=== PATIENT | female | born 1975 | race Caucasian/White ===

== ENCOUNTER → 2018-03-20 10:03 | Outpatient (POV) | payer BC, SELFPAY | PROVIDERS: Visit Provider Dermatology | DX: Z00.00 Encounter for general adult medical examination without abnormal findings (principal) ==

== ENCOUNTER → 2019-06-30 18:20 | Outpatient (CLI) | payer BC, SELFPAY ==
[2019-06-30 19:05] LABS: Basophils % 0.4 % (0.1-2.0); Eosinophils # 0.3 K/mm3 (0.0-0.4); Eosinophils % 2.5 % (0.1-12.0); Hematocrit 41.4 % (37.0-47.0); Hemoglobin 13.6 g/dL (12.2-16.2); Lymphocytes # 3.5 K/mm3 (0.7-4.5); Mean Corpuscular HGB Conc 32.9 g/dL (31.8-35.4); Mean Corpuscular Hemoglobin 30.3 pg (27.0-31.2); Mean Corpuscular Volume 92.2 fl (81-99); Mean Platelet Volume 7.3 fl (7.4-10.4); Monocytes # 0.7 K/mm3 (0.1-1.0); Monocytes % 6.1 % (1.7-9.3); Neutrophils % 61.1 % (37.0-80.0); Platelet Count 333 K/mm3 (142-424); Red Blood Count 4.49 M/mm3 (4.20-5.40); Red Cell Distribution Width 12.8 % (11.5-17.5); White Blood Count 11.5 K/mm3 (4.8-10.8)
[2019-06-30 20:37] LABS: Alanine Aminotransferase 21 U/L (12-78); Albumin Level 3.6 gm/dL (3.4-5.0); Alkaline Phosphatase 100 U/L (46-116); Anion Gap 15.2 mEq/L (5-15); Aspartate Amino Transferase 15 U/L (15-37); Bilirubin,Total 0.4 mg/dL (0.2-1.0); Blood Urea Nitrogen 15 mg/dL (7-18); Carbon Dioxide 26 mmol/L (21.0-32.0); Chloride 100 mmol/L (98-107); Creatinine,Serum 0.76 mg/dL (0.55-1.02); Estimated Glomerular Filt Rate 83 ml/min (>60); GFR (African American) 101 ML/MIN (>60); Globulin 3.6 gm/dl (1.3-3.2); Glucose 120 mg/dL (74-106); Iron 41 ug/dl (28-170); Potassium 4.2 mmoL/L (3.5-5.1); Sodium 137 mmol/L (136-145); Thyroid Stimulating Hormone 1.86 uIU/ml (0.358-3.740); Total Protein,Serum 7.2 gm/dL (6.4-8.2)
== END ==
PROVIDERS: Visit Provider Nurse Practitioner Family
DX: D50.9 Iron deficiency anemia, unspecified (principal); F41.1 Generalized anxiety disorder; E03.9 Hypothyroidism, unspecified
CPT/HCPCS: 36415; 80053; 83540; 84443; 85025

== ENCOUNTER → 2019-08-13 17:06 | Outpatient (CLI) | payer BC, SELFPAY ==
[2019-08-13 17:21] LABS: Basophils % 0.3 % (0.1-2.0); Eosinophils # 0.3 K/mm3 (0.0-0.4); Eosinophils % 2.5 % (0.1-12.0); Hematocrit 42.4 % (37.0-47.0); Hemoglobin 13.6 g/dL (12.2-16.2); Lymphocytes # 3.1 K/mm3 (0.7-4.5); Lymphocytes % 28.6 % (10-50); Mean Corpuscular Hemoglobin 31.1 pg (27.0-31.2); Mean Corpuscular Volume 97.1 fl (81-99); Mean Platelet Volume 7.5 fl (7.4-10.4); Monocytes # 0.8 K/mm3 (0.1-1.0); Monocytes % 7.2 % (1.7-9.3); Neutrophils # 6.7 K/mm3 (1.8-7.8); Neutrophils % 61.5 % (37.0-80.0); Platelet Count 317 K/mm3 (142-424); Red Blood Count 4.37 M/mm3 (4.20-5.40); White Blood Count 10.8 K/mm3 (4.8-10.8)
[2019-08-18 09:22] LABS: QuantiFERON-TB Gold Plus Negative (Negative)
== END ==
PROVIDERS: Visit Provider Dermatology
DX: L40.0 Psoriasis vulgaris (principal)
CPT/HCPCS: 36415; 85025; 86480

== ENCOUNTER → 2019-10-26 16:04 | Outpatient (CLI) | payer BC, SELFPAY ==
[2019-10-26 16:40] LABS: Basophils % 0.3 % (0.1-2.0); Eosinophils # 0.2 K/mm3 (0.0-0.4); Eosinophils % 1.8 % (0.1-12.0); Hematocrit 41.6 % (37.0-47.0); Hemoglobin 13.4 g/dL (12.2-16.2); Lymphocytes # 2.9 K/mm3 (0.7-4.5); Lymphocytes % 30.1 % (10-50); Mean Corpuscular HGB Conc 32.3 g/dL (31.8-35.4); Mean Corpuscular Hemoglobin 30.5 pg (27.0-31.2); Mean Corpuscular Volume 94.3 fl (81-99); Mean Platelet Volume 7.5 fl (7.4-10.4); Monocytes # 0.6 K/mm3 (0.1-1.0); Neutrophils % 61.8 % (37.0-80.0); Platelet Count 312 K/mm3 (142-424); Red Blood Count 4.41 M/mm3 (4.20-5.40); White Blood Count 9.7 K/mm3 (4.8-10.8)
[2019-10-26 17:34] LABS: Alanine Aminotransferase 19 U/L (12-78); Albumin Level 3.5 gm/dL (3.4-5.0); Alkaline Phosphatase 114 U/L (46-116); Anion Gap 12.2 mEq/L (5-15); Aspartate Amino Transferase 9 U/L (15-37); Bilirubin,Total 0.3 mg/dL (0.2-1.0); Blood Urea Nitrogen 20 mg/dL (7-18); Calcium 9.5 mg/dL (8.5-10.1); Carbon Dioxide 28 mmol/L (21.0-32.0); Chloride 101 mmol/L (98-107); Creatinine,Serum 0.62 mg/dL (0.55-1.02); Estimated Glomerular Filt Rate 105 ml/min (>60); Ferritin 139 ng/mL (8-388); GFR (African American) 127 ML/MIN (>60); Globulin 3.4 gm/dl (1.3-3.2); Glucose 87 mg/dL (74-106); Potassium 4.2 mmoL/L (3.5-5.1); Sodium 137 mmol/L (136-145); Thyroid Stimulating Hormone 1.39 uIU/ml (0.358-3.740); Total Protein,Serum 6.9 gm/dL (6.4-8.2)
[2019-10-29 12:47] LABS: Iron 58; Iron Saturation 19; UIBC 247
== END ==
PROVIDERS: Visit Provider Nurse Practitioner Family
DX: D50.9 Iron deficiency anemia, unspecified (principal); E03.9 Hypothyroidism, unspecified
CPT/HCPCS: 36415; 80053; 82728; 83540; 83550; 84443; 85025

== ENCOUNTER → 2020-07-19 16:05 | Outpatient (POV) | payer BC, SELFPAY ==
[2020-07-19 17:41] LABS: Basophils % 0.4 % (0.1-2.0); Eosinophils # 0.2 K/mm3 (0.0-0.4); Hematocrit 42.8 % (37.0-47.0); Hemoglobin 13.8 g/dL (12.2-16.2); Lymphocytes % 26.8 % (10-50); Mean Corpuscular HGB Conc 32.3 g/dL (31.8-35.4); Mean Corpuscular Hemoglobin 30.5 pg (27.0-31.2); Mean Corpuscular Volume 94.6 fl (81-99); Mean Platelet Volume 7.5 fl (7.4-10.4); Monocytes # 0.6 K/mm3 (0.1-1.0); Monocytes % 5.1 % (1.7-9.3); Neutrophils # 7.5 K/mm3 (1.8-7.8); Neutrophils % 65.8 % (37.0-80.0); Platelet Count 312 K/mm3 (142-424); Red Blood Count 4.52 M/mm3 (4.20-5.40); Red Cell Distribution Width 12.9 % (11.5-17.5); White Blood Count 11.3 K/mm3 (4.8-10.8)
[2020-07-19 19:55] LABS: Chloride 100 mmol/L (98-107); Potassium 4.5 mmoL/L (3.5-5.1); Sodium 138 mmol/L (136-145)
[2020-07-19 19:57] LABS: Blood Urea Nitrogen 24 mg/dl (7-17)
[2020-07-19 19:58] LABS: Alanine Aminotransferase 22 U/L (12-78); Albumin Level 3.9 g/dl (3.5-5.0); Albumin/Globulin Ratio 1.3 (1.1-1.8); Alkaline Phosphatase 94 U/L (38-126); Anion Gap 14.5 mEq/L (5-15); Aspartate Amino Transferase 21 U/L (14-36); Bilirubin,Total 0.3 mg/dl (0.2-1.3); Calcium 9.6 mg/dl (8.4-10.2); Carbon Dioxide 28 mmol/L (22.0-30.0); Estimated Glomerular Filt Rate 78 ml/min (>60); GFR (African American) 94 ML/MIN (>60); Globulin 2.9 g/dL (1.3-3.2); Glucose 119 mg/dl (74-100); Total Protein,Serum 6.8 g/dl (6.3-8.2)
[2020-07-22 09:35] LABS: QuantiFERON-TB Gold Plus Negative (Negative)
== END ==
PROVIDERS: Visit Provider Dermatology
DX: L40.0 Psoriasis vulgaris (principal); Z79.899 Other long term (current) drug therapy
CPT/HCPCS: 36415; 80053; 85025; 86480

== ENCOUNTER → 2020-07-27 14:09 | Outpatient (CLI) | payer BC, SELFPAY | PROVIDERS: PCP Family Medicine; Visit Provider Physician Assistant | DX: Z03.818 Encounter for observation for suspected exposure to other biological agents ruled out (principal) | CPT/HCPCS: U0003 ==

== ENCOUNTER 2020-10-14 16:32 | Emergency (ER) | payer BC, SELFPAY ==
[2020-10-14 17:16] VITALS: BP 142/82; PULSE 95; RESP 16; TEMP 37.1; O2SAT 97; BMI 34.2
--- NOTE | 2020-10-14 17:48 | HMH.EDUTC ---
[facility] Clinical Impression: Exposure to COVID-19 virus Disposition: Home, Self-Care Condition on Discharge: Good Instructions: DI for COVID-19 (Suspected or Confirmed ), Coronavirus Disease 2019, COVID-19: Testing and Tracing, Preventing the Spread of Coronavirus Discharge Instructions Additional Instructions: *Monitor Temp, Over the counter Motrin or Tylenol as directed/as needed Tylenol every 4 hours and Motrin every 6 hours (as long as your family doctor has told you that you can take it) for fever or pain. and straight to ER if unable to lower temp less than 101.0 after medication given Follow up IMMEDIATELY for new or worsening symptoms or no Noticeable improvement over the next 48-72 hours. 911 for difficulty breathing or swallowing You were tested for today for COVID19 your test result should be back in the next 24-48 hours, you may call to the [facility] to see if your test results are back in the next 48 hours [phone] [facility] hours are 9am-9pm You was given a handout with instructions for Self Quarantine and Self isolation for while you wait on test results and what to do if they are positive If you are positive the Health Dept will be contacting you also Referrals: Nando Carrero MD [Primary Care Provider] - As needed Forms: Work/School Release Time of Disposition: 17:49 Medical Decision Making - Omega Inquiry Pt receiving controlled substance: No Omega was queried for this patient: No Vital Signs: 10/14/20 17:16 Temperature 98.8 F Temperature Source Oral Pulse Rate [Right] 95 H Respiratory Rate 16 Blood Pressure [Right Arm] 142/82 H Blood Pressure Mean [Right Arm] 102 Blood Pressure Source [Right Arm] Automatic Cuff Blood Pressure Position [Right Arm] Sitting 02 Sat by Pulse Oximetry 97 Oxygen Delivery Method Room Air Orders (Tests/Meds): ORDERS Category Date Time Status Covid-19 Nasal PCR ([facility]) Routine Lab 10/14/20 16:35 Ordered [facility] [place] - General Stated complaint: covid test Time Seen by Provider: 10/14/20 17:48 Mode of Arrival: Ambulatory Source of Information: Patient Description of Symptoms (Recalled from Triage Doc. by RN): pt advises he was exposed to covid denies any symptoms HEENT Symptoms (Recalled from RN notes): No Resp Symptoms (Recalled from RN notes): No Skin Symptoms (Recalled from RN notes): No MS Symptoms (Recalled from RN notes): No Functional Status (Recalled from RN notes): na - History of Present Illness Provider Complaint: Patient state that she was recently around someone that has recently tested positive for COVID States that she is not having any symptoms but due to exposure she wanted to get checked - Related Data Allergies Allergy/AdvReac Type Severity Reaction Status Date / Time Penicillins [PENICILLINS] Allergy Mild Unverified 10/01/17 14:29 - Worker's Comp Is this a Worker's Comp case?: No [facility] History - Hepatitis A Screen Drug use history?: No High risk sexual behaviors?: No History of sexually transmitted infection?: No Currently employed?: No Childcare worker?: No Do you have indoor plumbing?: Yes Do you have electricity?: Yes Attestation statement:: This patient has been screened for Hepatitis A risk factors. I have reviewed the patient's past medical history: Yes ROS Obtained: Yes All systems reviewed & no additional complaints, Yes Systems reviewed as appropriate & no additional complaints - Constitutional Constitutional: Reports system reviewed and no additional complaints, except as docu, Denies body ache, Denies chills, Denies fever(s), Denies headache(s) - ENT Ears, Nose, Mouth, and Throat: Reports system reviewed and no additional complaints, except as docu, Denies otalgia, Denies nasal congestion, Denies nasal discharge, Denies sore throat - Cardiovascular Cardiovascular: Reports system reviewed and no additional complaints, except as docu - Respiratory Respiratory: Yes system reviewed and no additional c
[2020-10-14 17:56] VITALS: BP 140/80; PULSE 87; RESP 16; TEMP 37.1; O2SAT 98
== END 2020-10-14 17:58 | disposition home or self-care (01) ==
PROVIDERS: Emergency Provider Nurse Practitioner; PCP Family Medicine
DX: Z20.822 Contact with and (suspected) exposure to COVID-19 (principal); Z88.0 Allergy status to penicillin
CPT/HCPCS: 99202; G0463; U0003

== ENCOUNTER → 2021-03-14 13:10 | Outpatient (CLI) | payer BC, SELFPAY | PROVIDERS: PCP Family Medicine; Visit Provider Family Medicine | DX: R40.0 Somnolence; R06.83 Snoring; E66.9 Obesity, unspecified; G47.33 Obstructive sleep apnea (adult) (pediatric) | CPT/HCPCS: G0399 ==

== ENCOUNTER 2021-07-08 09:04 | Emergency (ER) | payer BC, SELFPAY ==
[2021-07-08 09:05] VITALS: BP 148/85; PULSE 96; RESP 18; TEMP 36.8; O2SAT 96; BMI 45.1
[2021-07-08 09:33] LABS: Apearance,Urine Clear (Clear); Bilirubin,Urine Negative (Negative); Blood, Urine Trace (Negative); Color,Urine Yellow (Yellow); Glucose,Urine (UA) Negative (Negative); Ketones,Urine Negative (Negative); Protein,Urine 2+ (Negative); Specific Gravity, Urine 1.025 (1.005-1.030)
[2021-07-08 09:34] LABS: UTC Leukocyte Esterase,Urine Negative (Negative); UTC Nitrate,Urine Negative (Negative); Urobilinogen,Urine 0.2 EU/dl (0.2)
--- NOTE | 2021-07-08 09:43 | HMH.EDUTC ---
[facility] [place] Clinical Impression: UTI (urinary tract infection) Qualifiers: Urinary tract infection type: acute cystitis Hematuria presence: with hematuria Qualified Code(s): N30.01 - Acute cystitis with hematuria Edema Qualifiers: Edema type: unspecified Qualified Code(s): R60.9 - Edema, unspecified Disposition: Home, Self-Care Condition on Discharge: Good Instructions: DI for Urinary Tract Infection (UTI) Additional Instructions: Take all antibiotics as directed until finished. Take fluid pills X 3 days. Urine culture should be available Saturday. Follow up with Dr Carrero Saturday for culture results, to make sure symptoms improving. Monitor glucose. Prescriptions: Furosemide [Lasix 40mg tab] 40 mg PO DAILY 3 Days #3 tab Transmission Status: Pending to [facility] levoFLOXacin [Levaquin 500mg tab] 500 mg PO DAILY 10 Days #10 tab Transmission Status: Pending to [facility] Referrals: Nando Carrero MD [Primary Care Provider] - Time of Disposition: 10:31 Medical Decision Making - Omega Inquiry Pt receiving controlled substance: No Vital Signs: 07/08/21 09:05 Temperature 98.2 F Temperature Source Oral Pulse Rate [Right Brachial] 96 H Respiratory Rate 18 Blood Pressure [Right Arm] 148/85 H Blood Pressure Mean [Right Arm] 106 Blood Pressure Source [Right Arm] Automatic Cuff Blood Pressure Position [Right Arm] Sitting 02 Sat by Pulse Oximetry 96 Oxygen Delivery Method Room Air - Lab Data Lab results reviewed: Yes: I reviewed the patient's lab results. Lab Results 07/08/21 09:26: Urine Color Yellow, Urine Appearance Clear, Urine pH 6.0, Ur Specific [place] 1.025, Urine Protein 2+, Urine Glucose (UA) Negative, Urine Ketones Negative, Urine Blood Trace, Urine Nitrate Negative, Urine Bilirubin Negative, Urine Urobilinogen 0.2, Ur Leukocyte Esterase Negative 07/08/21 09:55: Sodium 138, Potassium 4.1, Chloride 107, Carbon Dioxide 26, Anion Gap 9.1, BUN 11, Creatinine 0.80, Estimated Creat Clear 83, Estimated GFR 78, Est GFR ( Amer) 94, Glucose 121 H, Calcium 8.2 L Result diagrams: 07/08/21 09:55 Orders (Tests/Meds): ORDERS Category Date Time Status Urine Culture Stat Micro 07/08/21 09:15 Received Medical Decision Narrative: Urine showed 2+ protein, trace blood. BMP showed glucose 121, calcium 8.2 but creatinine normal [facility] [place] - General Stated complaint: ankle and legs swelling,back pain Time Seen by Provider: 07/08/21 09:43 Mode of Arrival: Ambulatory Source of Information: Patient Limitations: No Limitations Description of Symptoms (Recalled from Triage Doc. by RN): PATIENT C/O LOWER BACK PAIN, SWELLING IN HANDS, FEET AND LEGS, AND PAIN IN LEFT HEEL. SHE REPORTS BEING TREATED FOR UTI APPROX 2 WEEKS AGO, BUT STATES URINE STILL HAS A STRONG ODOR HEENT Symptoms (Recalled from RN notes): No Resp Symptoms (Recalled from RN notes): No Skin Symptoms (Recalled from RN notes): No MS Symptoms (Recalled from RN notes): Yes Functional Status (Recalled from RN notes): WNL - History of Present Illness Provider Complaint: Patient was treated for UTI roughly 2 weeks ago with Macrobid. The burning with urination mostly resolved, but she has had persistent back pain, frequency, urgency. Urine is very dark despite drinking water all day and still has a foul odor. She has not had a fever. No nausea or vomiting. Last night she began having swelling in her hand and feet. No shortness of breath, headache, chest pain. No known history of DM, HTN, kidney disease. Onset (ago): day(s) (1) Consistency: constant Relieving factors: none Exacerbating factors: none Associated symptoms: denies other symptoms Treatments prior to arrival: none - Related Data Previous Rx's Medication Instructions Recorded Furosemide [Lasix 40mg tab] 40 mg PO DAILY 3 Days #3 tab 07/08/21 levoFLOXacin [Levaquin 500mg 500 mg PO DAILY 10 Days #10 tab 07/08/21 tab] Allergies Octavio
[2021-07-08 10:13] LABS: Anion Gap 9.1 mEq/L (5-15); Blood Urea Nitrogen 11 mg/dl (7-17); Calcium 8.2 mg/dl (8.4-10.2); Carbon Dioxide 26 mmol/L (22.0-30.0); Chloride 107 mmol/L (98-107); Creatinine Clearance Estimated 83 mL/min (50-200); Estimated Glomerular Filt Rate 78 ml/min (>60); GFR (African American) 94 ML/MIN (>60); Glucose 121 mg/dl (74-100); Potassium 4.1 mmoL/L (3.5-5.1); Sodium 138 mmol/L (136-145)
[2021-07-08 10:42] VITALS: BP 148/85; PULSE 96; RESP 18; TEMP 36.8; O2SAT 96
== END 2021-07-08 10:46 | disposition home or self-care (01) ==
PROVIDERS: Emergency Provider Physician Assistant; PCP Family Medicine
DX: N30.01 Acute cystitis with hematuria (principal); R60.9 Edema, unspecified; Z88.0 Allergy status to penicillin
CPT/HCPCS: 80048; 81003; 87086; 99203; G0463

== ENCOUNTER → 2021-07-11 15:32 | Outpatient (POV) | payer BC, SELFPAY | PROVIDERS: Visit Provider Dermatology | DX: Z00.00 Encounter for general adult medical examination without abnormal findings (principal) ==

== ENCOUNTER → 2021-07-12 15:54 | Outpatient (CLI) | payer BC, SELFPAY ==
[2021-07-12 16:20] LABS: Basophils # 0.1 K/mm3 (0-0.2); Basophils % 0.6 % (0.1-2.0); Eosinophils # 0.3 K/mm3 (0.0-0.4); Eosinophils % 3.4 % (0.1-12.0); Hematocrit 41.1 % (37.0-47.0); Hemoglobin 14.1 g/dL (12.2-16.2); Lymphocytes # 3.9 K/mm3 (0.7-4.5); Mean Corpuscular HGB Conc 34.2 g/dL (31.8-35.4); Mean Corpuscular Hemoglobin 32.5 pg (27.0-31.2); Mean Platelet Volume 7.6 fl (7.4-10.4); Monocytes # 0.7 K/mm3 (0.1-1.0); Monocytes % 7.4 % (1.7-9.3); Neutrophils # 4.7 K/mm3 (1.8-7.8); Neutrophils % 48.5 % (37.0-80.0); Platelet Count 300 K/mm3 (142-424); Red Blood Count 4.32 M/mm3 (4.20-5.40); Red Cell Distribution Width 14.2 % (11.5-17.5); White Blood Count 9.8 K/mm3 (4.8-10.8)
[2021-07-12 16:31] LABS: Chloride 101 mmol/L (98-107); Potassium 3.8 mmoL/L (3.5-5.1); Sodium 136 mmol/L (136-145)
[2021-07-12 16:33] LABS: Alanine Aminotransferase 85 U/L (12-78); Aspartate Amino Transferase 65 U/L (14-36); Blood Urea Nitrogen 19 mg/dl (7-17); Estimated Glomerular Filt Rate 78 ml/min (>60); GFR (African American) 94 ML/MIN (>60)
[2021-07-12 16:34] LABS: Albumin Level 3.7 g/dl (3.5-5.0); Albumin/Globulin Ratio 1.3 (1.1-1.8); Alkaline Phosphatase 100 U/L (38-126); Anion Gap 12.8 mEq/L (5-15); Bilirubin,Total 0.4 mg/dl (0.2-1.3); Calcium 9.3 mg/dl (8.4-10.2); Carbon Dioxide 26 mmol/L (22.0-30.0); Globulin 2.8 g/dL (1.3-3.2); Glucose 112 mg/dl (74-100); Total Protein,Serum 6.5 g/dl (6.3-8.2)
[2021-07-19 17:09] LABS: QuantiFERON-TB Gold Plus Negative (Negative)
== END ==
PROVIDERS: Visit Provider Dermatology
DX: L40.0 Psoriasis vulgaris (principal); Z79.899 Other long term (current) drug therapy
CPT/HCPCS: 36415; 80053; 85025; 86480

== ENCOUNTER → 2021-07-19 07:03 | Outpatient (CLI) | payer BC, SELFPAY ==
[2021-07-19 08:11] LABS: Alanine Aminotransferase 68 U/L (12-78); Alkaline Phosphatase 85 U/L (38-126); Aspartate Amino Transferase 56 U/L (14-36); Bilirubin,Direct 0.1 mg/dl (0.0-0.4); Bilirubin,Indirect 0.4 mg/dL (0.0-0.9); Bilirubin,Total 0.5 mg/dl (0.2-1.3); Bilirubin,Unconjugated 0.4 mg/dL (0.0-1.1)
[2021-07-19 08:12] LABS: Albumin Level 3.1 g/dl (3.5-5.0); Chol/HDL Ratio 6.4 (1-3.5); Cholesterol 191 mg/dl (140-200); HDL Cholesterol 30 mg/dl (40-60); Total Protein,Serum 5.6 g/dl (6.3-8.2); Triglycerides 221 mg/dl (30-150); VLDL Cholesterol 44 mg/dL (0-40)
== END ==
PROVIDERS: Visit Provider Family Medicine
DX: R94.5 Abnormal results of liver function studies (principal); E03.9 Hypothyroidism, unspecified; E66.01 Morbid (severe) obesity due to excess calories
CPT/HCPCS: 36415; 80061; 80076; 84443

== ENCOUNTER 2021-07-21 08:50 | Emergency (ER) | payer BC, SELFPAY ==
[2021-07-21 08:51] VITALS: BP 113/70; PULSE 76; RESP 17; TEMP 36.9; O2SAT 96; BMI 45.1
--- NOTE | 2021-07-21 08:58 | ECG_ITS ---
APPROVED REPORT Exam: Resting ECG HR:77 bpm ECG Measurements Heart Rate 77 AXES [place] 148 P 33 QRSd 74 QRS 40 QT 370 T 28 QTc 418 Conclusion Normal sinus rhythm Normal ECG Electronically signed by : Nando Jensen MD 07/22/2021 09:47:11
--- NOTE | 2021-07-21 09:11 | XR_ITS ---
PROCEDURE: XR CHEST PORTABLE CLINICAL HISTORY: cough COMPARISON: No exams were available for comparison FINDINGS: The cardiomediastinal silhouette and pulmonary vascularity are within normal limits. The lungs are clear without infiltrates, suspicious nodules, or pleural effusions. There are monitor lines overlying the chest. No acute bony abnormalities. IMPRESSION: No acute findings. Dictated by: Dr. Daren West MD 07/21/2021 10:18 Dr. Daren West MD in [place] 07/21/2021 10:18
[2021-07-21 09:27] LABS: Basophils # 0.1 K/mm3 (0-0.2); Basophils % 0.8 % (0.1-2.0); Eosinophils # 0.4 K/mm3 (0.0-0.4); Eosinophils % 4.6 % (0.1-12.0); Hemoglobin 13.3 g/dL (12.2-16.2); Lymphocytes # 3.6 K/mm3 (0.7-4.5); Lymphocytes % 44.2 % (10-50); Mean Corpuscular HGB Conc 32.6 g/dL (31.8-35.4); Mean Corpuscular Hemoglobin 32.4 pg (27.0-31.2); Mean Corpuscular Volume 99.7 fl (81-99); Mean Platelet Volume 8.4 fl (7.4-10.4); Monocytes # 0.7 K/mm3 (0.1-1.0); Neutrophils # 3.4 K/mm3 (1.8-7.8); Neutrophils % 41.4 % (37.0-80.0); Platelet Count 288 K/mm3 (142-424); Red Blood Count 4.11 M/mm3 (4.20-5.40); Red Cell Distribution Width 15.3 % (11.5-17.5); White Blood Count 8.2 K/mm3 (4.8-10.8)
[2021-07-21 09:28] LABS: Chloride 105 mmol/L (98-107); Sodium 136 mmol/L (136-145)
[2021-07-21 09:29] LABS: Potassium 4.4 mmoL/L (3.5-5.1)
[2021-07-21 09:31] LABS: Alanine Aminotransferase 67 U/L (12-78); Alkaline Phosphatase 92 U/L (38-126); Anion Gap 8.4 mEq/L (5-15); Aspartate Amino Transferase 60 U/L (14-36); Bilirubin,Total 0.5 mg/dl (0.2-1.3); Blood Urea Nitrogen 8 mg/dl (7-17); Carbon Dioxide 27 mmol/L (22.0-30.0); Estimated Glomerular Filt Rate 108 ml/min (>60); GFR (African American) 131 ML/MIN (>60)
[2021-07-21 09:32] LABS: Albumin Level 3.2 g/dl (3.5-5.0); Albumin/Globulin Ratio 1.2 (1.1-1.8); Calcium 8.5 mg/dl (8.4-10.2); Globulin 2.7 g/dL (1.3-3.2); Glucose 121 mg/dl (74-100); Lipase 44 U/L (23-300); Total Protein,Serum 5.9 g/dl (6.3-8.2)
--- NOTE | 2021-07-21 09:35 | PC.NURSE ---
Checked on patient currently laying on back in bed. Gave her a warm blanket. She is stable condition. Will continue to monitor.
--- NOTE | 2021-07-21 09:37 | PC.NURSE ---
Xray in room
--- NOTE | 2021-07-21 09:41 | HMH.EDGENADL ---
ED Disposition Clinical Impression: Palpitations, Dependent edema Disposition: Home, Self-Care Condition on Discharge: Good Instructions: DI for Palpitations Referrals: Nando Carrero MD [Primary Care Provider] - - Critical Care Critical Care Time: No Attestation: On 07/21/21, the high probability of a clinically significant, sudden or life threatening deterioration of the following system(s) required my full and direct attention, intervention and personal management. The time I documented below is in addition to time spent performing reported procedures but includes the following listed in this critical care notation. Medical Decision Making - Medical Records Medical records reviewed: Yes: I reviewed the patient's medical records. - Omega Inquiry Pt receiving controlled substance: No Vital Signs: 07/21/21 08:51 07/21/21 09:50 07/21/21 10:01 Temperature 98.4 F Temperature Source Oral Pulse Rate 81 78 Pulse Rate [Right Radial] 76 Respiratory Rate 17 21 19 Blood Pressure 93/65 L 84/49 L Blood Pressure [Right Arm] 113/70 Blood Pressure Mean 73 60 Blood Pressure Mean [Right Arm] 84 Blood Pressure Source [Right Arm] Automatic Cuff Blood Pressure Position [Right Arm] Sitting 02 Sat by Pulse Oximetry 96 98 96 Oxygen Delivery Method Room Air - Lab Data Lab Results 07/21/21 09:11: WBC 8.2, RBC 4.11 L, Hgb 13.3, Hct 41.0, MCV 99.7 H, MCH 32.4 H, MCHC 32.6, RDW 15.3, Plt Count 288, MPV 8.4, Neut % (Auto) 41.4, Lymph % (Auto) 44.2, [place] % (Auto) 9.0, Eos % (Auto) 4.6, Baso % (Auto) 0.8, Neut # (Auto) 3.4, Lymph # (Auto) 3.6, [place] # (Auto) 0.7, Eos # (Auto) 0.4, Baso # (Auto) 0.1 07/21/21 09:11: PT 11.1, INR 0.98, APTT 26.1 07/21/21 09:11: Sodium 136, Potassium 4.4, Chloride 105, Carbon Dioxide 27, Anion Gap 8.4, BUN 8, Creatinine 0.60, Estimated GFR 108, Est GFR ( Amer) 131, Glucose 121 H, Calcium 8.5, Total Bilirubin 0.5, AST 60 H, ALT 67, Alkaline Phosphatase 92, Troponin I < 0.01, NT-Pro-B Natriuret Pep 59.4, Total Protein 5.9 L, Albumin 3.2 L, Globulin 2.7, Albumin/Globulin Ratio 1.2, Lipase 44, TSH 5.80 H D 07/21/21 09:45: Urine HCG, Qual Negative 07/21/21 09:55: Urine Color Yellow, Urine Appearance Clear, Urine pH 7.0, Ur Specific [place] 1.015, Urine Protein Trace, Urine Glucose (UA) Negative, Urine Ketones Negative, Urine Blood Negative, Urine Nitrate Negative, Urine Bilirubin Negative, Urine Urobilinogen 0.2, Ur Leukocyte Esterase Negative, Urine RBC None, Urine WBC Occasional, Ur Squamous Epith Cells 3-5, Urine Bacteria None Result diagrams: 07/21/21 09:11 07/21/21 09:11 Orders (Tests/Meds): ORDERS Category Date Time Status Troponin I Q3H Lab 07/21/21 12:15 Ordered Troponin I Q3H Lab 07/21/21 15:15 Ordered - Radiology Data #1 Image(s): Chest Image Reviewed: Yes I reviewed the patient's radiology results, Yes I reviewed the patient's radiology image, Yes I have reviewed radiologist's interpretation Preliminary Findings: Normal/NAD - ECG Data Tracing #1 I reviewed this ECG and interpreted as documented below: ECG initial impression date: 07/21/21 ECG initial impression time: 08:58 ECG normal with no acute: arrhythmias, ischemia, conduction abnormalities, chamber hypertrophy Normal Sinus Rhythm: Yes - Reevaluation(s) Time: 10:28 Reevaluation #1: On reevaluation, patient is feeling much better. There is no evidence of dysrhythmia on cardiac tracing. Troponin negative. Patient does have slightly elevated TSH level. I do believe this could be contributing to her dependent edema. I recommend thyroid studies with her primary care physician. Patient needs to follow-up in 48 hours. Given strict return precautions. Verbalized understanding. Medical Decision Narrative: 46-year-old female presented to the emergency department with multiple complaints. With regards to the palpitations, the patient is not experiencing at this time. She is hemodynamica
[2021-07-21 09:42] LABS: NT Pro Brain Natriuretic Pep. 59.4 pg/mL (0-125)
[2021-07-21 09:46] LABS: Troponin I < 0.01 ng/ml (0.00-0.034)
[2021-07-21 09:48] LABS: Activated Partial Thrombo Time 26.1 seconds (22.8-30.6); INR 0.98 (0.9-1.1); Prothrombin Time 11.1 seconds (10.1-12.5)
[2021-07-21 09:50] VITALS: BP 93/65; PULSE 81; RESP 21; O2SAT 98
[2021-07-21 10:01] VITALS: BP 84/49; PULSE 78; RESP 19; O2SAT 96
[2021-07-21 10:11] LABS: Microscopic, Urine URINE MICROSCOPIC (MICROSCOPIC)
[2021-07-21 10:12] LABS: Appearance,Urine CLEAR (Clear); Bilirubin,Urine Negative (Negative); Blood, Urine Negative (Negative); Color,Urine YELLOW (Yellow); Glucose,Urine (UA) Negative (Negative); Ketones,Urine Negative (Negative); Leukocyte Esterase,Urine Negative (Negative); Nitrate,Urine Negative (Negative); Protein,Urine TRACE (Negative); Specific Gravity, Urine 1.015 (1.005-1.030); Urobilinogen,Urine 0.2 EU/dl (0.2)
[2021-07-21 10:12] LABS: Urine Pregnancy, HCG Qual. Negative (Negative)
[2021-07-21 10:24] VITALS: BP 118/63; PULSE 79; RESP 12; O2SAT 96
[2021-07-21 10:24] LABS: WBC,Urine Occasional #/hpf (0-3)
--- NOTE | 2021-07-21 10:25 | PC.NURSE ---
Went into pts room and repositioned patient, and turned off lights. She is stable. Will continue to monitor.
[2021-07-21 10:31] VITALS: BP 100/73; PULSE 77; RESP 19; O2SAT 95
[2021-07-21 10:54] VITALS: BP 100/73; PULSE 79; RESP 18; TEMP 36.8; O2SAT 97
== END 2021-07-21 10:54 | disposition home or self-care (01) ==
PROVIDERS: Emergency Provider Emergency Medicine; PCP Family Medicine
DX: R00.2 Palpitations (principal); R60.9 Edema, unspecified; Z87.440 Personal history of urinary (tract) infections
CPT/HCPCS: 71045; 80053; 81001; 81025; 83690; 83880; 84443; 84484; 85025; 85610; 85730; 93005; 99284

== ENCOUNTER → 2022-02-20 15:52 | Outpatient (POV) | payer BC, SELFPAY | PROVIDERS: Visit Provider Dermatology | DX: Z00.00 Encounter for general adult medical examination without abnormal findings (principal) ==

== ENCOUNTER → 2022-04-30 16:30 | Outpatient (CLI) | payer BC, SELFPAY ==
--- NOTE | 2022-04-30 16:30 | MM_ITS ---
PROCEDURE INFORMATION: Exam: MG Bilateral Screening 3D Mammography Exam date and time: 04/30/2022 4:24 PM Age: 47 years old Clinical indication: Screening mammogram. TECHNIQUE: Imaging protocol: Bilateral Screening tomosynthesis and 2D mammography including computer-aided detection (CAD) when performed. COMPARISON: 1. MG DMSB DIG MAMM-SCREEN BALTAZAR W/CAD 03/12/2017 8:17 AM 2. MG DMSB DIGITAL MAMM-SCREEN BILATERAL 06/13/2012 12:59 PM FINDINGS: MAMMOGRAPHY: Breast composition: There are scattered areas of fibroglandular density. Mass: None. Architectural distortion: No new or suspicious architectural distortion. Calcifications: No new or suspicious calcifications are present Asymmetric density: No new or suspicious asymmetric density is present Skin thickening: None. Axillary adenopathy: None. IMPRESSION: No mammographic evidence of malignancy. Recommend annual screening mammography unless otherwise clinically indicated. ASSESSMENT: BI-RADS category 1: Negative
== END ==
PROVIDERS: PCP Family Medicine; Visit Provider Nurse Practitioner Obstetrics & Gynecology
DX: Z12.31 Encounter for screening mammogram for malignant neoplasm of breast (principal)
CPT/HCPCS: 77063; 77067

== ENCOUNTER → 2022-07-12 13:42 | Outpatient (CLI) | payer BC, SELFPAY ==
--- NOTE | 2022-07-12 14:09 | XR_ITS ---
FINAL REPORT CLINICAL HISTORY: OBESITY FINDINGS: TWO-VIEW CHEST Two views of the chest were obtained. The heart size and pulmonary vascularity are within normal limits. The mediastinum is normal. No acute pulmonary abnormality is identified. There is no pneumothorax. The bony thorax is intact. IMPRESSION: No active cardiopulmonary disease. Reviewed, Interpreted and Dictated by Nessa Katz MD Transcribed by Lainey Segura Authenticated and [facility]
[2022-07-12 14:54] LABS: Basophils % 0.5 % (0.1-2.0); Eosinophils # 0.1 K/mm3 (0.0-0.4); Eosinophils % 1.5 % (0.1-12.0); Hematocrit 44.6 % (37.0-47.0); Lymphocytes # 3.4 K/mm3 (0.7-4.5); Mean Corpuscular HGB Conc 31.3 g/dL (31.8-35.4); Mean Corpuscular Hemoglobin 30.7 pg (27.0-31.2); Mean Corpuscular Volume 98.3 fl (81-99); Mean Platelet Volume 7.2 fl (7.4-10.4); Monocytes # 0.6 K/mm3 (0.1-1.0); Monocytes % 7.9 % (1.7-9.3); Neutrophils # 3.8 K/mm3 (1.8-7.8); Neutrophils % 47.1 % (37.0-80.0); Platelet Count 290 K/mm3 (142-424); Red Blood Count 4.54 M/mm3 (4.20-5.40); Red Cell Distribution Width 12.3 % (11.5-17.5)
[2022-07-12 15:09] LABS: Hemoglobin A1C 5.5 % (4.0-6.0)
[2022-07-12 15:22] LABS: Chloride 101 mmol/L (98-107); Potassium 4.5 mmoL/L (3.5-5.1); Sodium 138 mmol/L (136-145)
[2022-07-12 15:24] LABS: Blood Urea Nitrogen 12 mg/dl (7-17); Estimated Glomerular Filt Rate 108 ml/min (>60); GFR (African American) 130 ML/MIN (>60)
[2022-07-12 15:25] LABS: Alanine Aminotransferase 28 U/L (12-78); Albumin Level 4.3 g/dl (3.5-5.0); Albumin/Globulin Ratio 1.6 (1.1-1.8); Alkaline Phosphatase 99 U/L (38-126); Anion Gap 12.5 mEq/L (5-15); Aspartate Amino Transferase 32 U/L (14-36); Bilirubin,Total 0.8 mg/dl (0.2-1.3); Calcium 8.9 mg/dl (8.4-10.2); Carbon Dioxide 29 mmol/L (22.0-30.0); Chol/HDL Ratio 4.3 (1-3.5); Cholesterol 196 mg/dl (140-200); Globulin 2.7 g/dL (1.3-3.2); Glucose 92 mg/dl (74-100); HDL Cholesterol 46 mg/dl (40-60); Iron 93 ug/dL (37-170); Triglycerides 140 mg/dl (30-150); VLDL Cholesterol 28 mg/dL (0-40)
[2022-07-12 15:39] LABS: Intact Parathyroid Hormone 64.7 pg/mL (7.5-53.5)
[2022-07-12 15:40] LABS: Direct LDL Cholesterol 124.5 mg/dL (100-129)
[2022-07-12 15:41] LABS: Total Iron Binding Capacity 279 ug/dL (265-497)
[2022-07-12 15:42] LABS: 25-OH Vitamin D, Total 32.9 ng/mL (30-100)
[2022-07-12 15:58] LABS: Thyroid Stimulating Hormone 0.75 uIU/mL (0.465-4.68)
[2022-07-12 16:08] LABS: Ferritin 93.3 ng/ml (6.24-137)
[2022-07-17 15:09] LABS: Methylmalonic Acid 97 nmol/L (0-378)
[2022-07-18 01:07] LABS: Vitamin A 37.6 ug/dL (20.1-62.0)
[2022-07-18 11:57] LABS: Vitamin E Alpha Tocopherol 9.9 mg/L (7.0-25.1); Vitamin E Gamma Tocopherol 2.1 mg/L (0.5-5.5)
== END ==
PROVIDERS: PCP Family Medicine; Visit Provider Nurse Practitioner Family
DX: E66.9 Obesity, unspecified (principal); Z68.41 Body mass index [BMI] 40.0-44.9, adult
CPT/HCPCS: 36415; 71046; 80053; 80061; 82131; 82306; 82728; 82746; 83036; 83540; 83550; 83970; 84425; 84443; 84446; 84590; 85025

== ENCOUNTER → 2022-08-07 14:53 | Outpatient (CLI) | payer BC, SELFPAY ==
[2022-08-07 15:40] VITALS: PULSE 68; PULSE 70
== END ==
PROVIDERS: PCP Family Medicine; Visit Provider Nurse Practitioner Family
DX: Z01.818 Encounter for other preprocedural examination (principal)
CPT/HCPCS: 94060; 94640

== ENCOUNTER → 2022-11-08 15:35 | Outpatient (CLI) | payer BC, SELFPAY ==
[2022-11-08 16:35] LABS: Basophils # 0.1 K/mm3 (0-0.2); Basophils % 0.8 % (0.1-2.0); Eosinophils # 0.2 K/mm3 (0.0-0.4); Eosinophils % 2.1 % (0.1-12.0); Hematocrit 40.6 % (37.0-47.0); Hemoglobin 13.5 g/dL (12.2-16.2); Lymphocytes % 39.4 % (10-50); Mean Corpuscular HGB Conc 33.3 g/dL (31.8-35.4); Mean Corpuscular Hemoglobin 31.4 pg (27.0-31.2); Mean Corpuscular Volume 94.3 fl (81-99); Mean Platelet Volume 8.6 fl (7.4-10.4); Monocytes # 0.5 K/mm3 (0.1-1.0); Monocytes % 6.9 % (1.7-9.3); Neutrophils # 3.8 K/mm3 (1.8-7.8); Neutrophils % 50.8 % (37.0-80.0); Platelet Count 267 K/mm3 (142-424); Red Blood Count 4.31 M/mm3 (4.20-5.40); Red Cell Distribution Width 12.9 % (11.5-17.5); White Blood Count 7.5 K/mm3 (4.8-10.8)
[2022-11-08 16:44] LABS: Hemoglobin A1C 5.5 % (4.0-6.0)
[2022-11-08 16:53] LABS: Chloride 106 mmol/L (98-107); Potassium 4.2 mmoL/L (3.5-5.1); Sodium 140 mmol/L (136-145)
[2022-11-08 16:55] LABS: Alanine Aminotransferase 29 U/L (12-78); Alkaline Phosphatase 74 U/L (38-126); Aspartate Amino Transferase 26 U/L (14-36); Bilirubin,Total 0.7 mg/dl (0.2-1.3); Blood Urea Nitrogen 21 mg/dl (7-17); Estimated Glomerular Filt Rate 67 ml/min (>60); GFR (African American) 82 ML/MIN (>60)
[2022-11-08 16:56] LABS: Albumin Level 4.1 g/dl (3.5-5.0); Albumin/Globulin Ratio 1.5 (1.1-1.8); Anion Gap 9.2 mEq/L (5-15); Calcium 9.1 mg/dl (8.4-10.2); Carbon Dioxide 29 mmol/L (22.0-30.0); Chol/HDL Ratio 5.1 (1-3.5); Cholesterol 178 mg/dl (140-200); Globulin 2.7 g/dL (1.3-3.2); Glucose 94 mg/dl (74-100); HDL Cholesterol 35 mg/dl (40-60); Iron 52 ug/dL (37-170); Total Protein,Serum 6.8 g/dl (6.3-8.2); Triglycerides 121 mg/dl (30-150); VLDL Cholesterol 24 mg/dL (0-40)
[2022-11-08 17:06] LABS: Total Iron Binding Capacity 276 ug/dL (265-497)
[2022-11-08 17:07] LABS: Direct LDL Cholesterol 109.27 mg/dL (100-129)
[2022-11-08 17:31] LABS: Ferritin 107 ng/ml (6.24-137)
[2022-11-15 13:42] LABS: Vitamin E Gamma Tocopherol 1.2 mg/L (0.5-5.5)
[2022-11-15 18:05] LABS: Methylmalonic Acid 85 nmol/L (0-378)
[2022-11-15 20:09] LABS: Vitamin A 39.3 ug/dL (20.1-62.0)
== END ==
PROVIDERS: PCP Family Medicine; Visit Provider Nurse Practitioner Family
DX: Z90.3 Acquired absence of stomach [part of] (principal)
CPT/HCPCS: 36415; 80053; 80061; 82131; 82306; 82728; 82746; 83036; 83540; 83550; 84425; 84446; 84590; 85025

== ENCOUNTER → 2023-03-12 15:05 | Outpatient (POV) | payer BC, SELFPAY | PROVIDERS: Visit Provider Dermatology | DX: Z00.00 Encounter for general adult medical examination without abnormal findings (principal) ==

== ENCOUNTER → 2023-03-12 15:28 | Outpatient (CLI) | payer BC, SELFPAY ==
[2023-03-12 16:11] LABS: Basophils % 0.5 % (0.1-2.0); Eosinophils # 0.1 K/mm3 (0.0-0.4); Eosinophils % 1.5 % (0.1-12.0); Hematocrit 46.4 % (37.0-47.0); Lymphocytes # 2.7 K/mm3 (0.7-4.5); Lymphocytes % 30.3 % (10-50); Mean Corpuscular HGB Conc 32.3 g/dL (31.8-35.4); Mean Corpuscular Hemoglobin 30.8 pg (27.0-31.2); Mean Corpuscular Volume 95.4 fl (81-99); Monocytes # 0.7 K/mm3 (0.1-1.0); Monocytes % 7.4 % (1.7-9.3); Neutrophils # 5.3 K/mm3 (1.8-7.8); Neutrophils % 60.3 % (37.0-80.0); Platelet Count 293 K/mm3 (142-424); Red Blood Count 4.87 M/mm3 (4.20-5.40); Red Cell Distribution Width 13.1 % (11.5-17.5); White Blood Count 8.9 K/mm3 (4.8-10.8)
[2023-03-12 16:31] LABS: Chloride 102 mmol/L (98-107); Potassium 4.2 mmoL/L (3.5-5.1); Sodium 139 mmol/L (136-145)
[2023-03-12 16:33] LABS: Alanine Aminotransferase 26 U/L (12-78); Aspartate Amino Transferase 27 U/L (14-36); Blood Urea Nitrogen 19 mg/dl (7-17); Estimated Glomerular Filt Rate 77 ml/min (>60); GFR (African American) 93 ML/MIN (>60)
[2023-03-12 16:34] LABS: Albumin Level 4.3 g/dl (3.5-5.0); Albumin/Globulin Ratio 1.5 (1.1-1.8); Alkaline Phosphatase 82 U/L (38-126); Anion Gap 14.2 mEq/L (5-15); Bilirubin,Total 1.1 mg/dl (0.2-1.3); Calcium 9.7 mg/dl (8.4-10.2); Carbon Dioxide 27 mmol/L (22.0-30.0); Globulin 2.8 g/dL (1.3-3.2); Glucose 107 mg/dl (74-100); Total Protein,Serum 7.1 g/dl (6.3-8.2)
[2023-03-15 11:22] LABS: QuantiFERON-TB Gold Plus Negative (Negative)
== END ==
PROVIDERS: PCP Family Medicine; Visit Provider Dermatology
DX: L40.8 Other psoriasis (principal)
CPT/HCPCS: 36415; 80053; 85025; 86480

== ENCOUNTER → 2023-03-27 16:05 | Outpatient (CLI) | payer BC, SELFPAY ==
[2023-03-27 16:48] LABS: Basophils % 0.4 % (0.1-2.0); Eosinophils # 0.2 K/mm3 (0.0-0.4); Eosinophils % 1.9 % (0.1-12.0); Hematocrit 42.7 % (37.0-47.0); Hemoglobin 13.6 g/dL (12.2-16.2); Lymphocytes # 3.6 K/mm3 (0.7-4.5); Lymphocytes % 38.6 % (10-50); Mean Corpuscular HGB Conc 31.8 g/dL (31.8-35.4); Mean Corpuscular Hemoglobin 30.6 pg (27.0-31.2); Mean Platelet Volume 8.1 fl (7.4-10.4); Monocytes # 0.6 K/mm3 (0.1-1.0); Monocytes % 6.1 % (1.7-9.3); Neutrophils # 4.9 K/mm3 (1.8-7.8); Platelet Count 261 K/mm3 (142-424); Red Blood Count 4.44 M/mm3 (4.20-5.40); Red Cell Distribution Width 13.2 % (11.5-17.5); White Blood Count 9.2 K/mm3 (4.8-10.8)
[2023-03-27 17:04] LABS: Hemoglobin A1C 5.3 % (4.0-6.0)
[2023-03-27 17:15] LABS: Iron 67 ug/dL (37-170)
[2023-03-27 17:16] LABS: Alanine Aminotransferase 22 U/L (12-78); Albumin/Globulin Ratio 1.5 (1.1-1.8); Alkaline Phosphatase 80 U/L (38-126); Anion Gap 12.2 mEq/L (5-15); Aspartate Amino Transferase 27 U/L (14-36); Bilirubin,Total 0.4 mg/dl (0.2-1.3); Blood Urea Nitrogen 13 mg/dl (7-17); Calcium 8.7 mg/dl (8.4-10.2); Carbon Dioxide 28 mmol/L (22.0-30.0); Chloride 103 mmol/L (98-107); Chol/HDL Ratio 4.3 (1-3.5); Cholesterol 220 mg/dl (140-200); Estimated Glomerular Filt Rate 90 ml/min (>60); GFR (African American) 109 ML/MIN (>60); Globulin 2.6 g/dL (1.3-3.2); Glucose 97 mg/dl (74-100); HDL Cholesterol 51 mg/dl (40-60); Potassium 4.2 mmoL/L (3.5-5.1); Sodium 139 mmol/L (136-145); Total Protein,Serum 6.6 g/dl (6.3-8.2); Triglycerides 258 mg/dl (30-150); VLDL Cholesterol 52 mg/dL (0-40)
[2023-03-27 17:25] LABS: Total Iron Binding Capacity 255 ug/dL (265-497)
[2023-03-27 17:27] LABS: Direct LDL Cholesterol 124.25 mg/dL (100-129)
[2023-03-27 17:51] LABS: Ferritin 117 ng/ml (6.24-137)
[2023-03-27 18:22] LABS: Folate 7.33 ng/mL
[2023-04-01 07:11] LABS: Vitamin A 42.8 ug/dL (20.1-62.0); Vitamin E Gamma Tocopherol 1.2 mg/L (0.5-5.5)
[2023-04-01 18:09] LABS: Vitamin B1 119.1 nmol/L (66.5-200.0)
[2023-05-01 00:21] LABS: Methylmalonic Acid 83 nmol/L (0-378)
== END ==
PROVIDERS: PCP Family Medicine; Visit Provider Nurse Practitioner Family
DX: Z90.3 Acquired absence of stomach [part of] (principal)
CPT/HCPCS: 36415; 80053; 80061; 82306; 82728; 82746; 83036; 83540; 83550; 83921; 84425; 84446; 84590; 85025

== ENCOUNTER 2024-12-06 05:24 | Emergency (ER) | payer BC, SELFPAY ==
[2024-12-06 05:26] VITALS: BP 111/79; PULSE 62; RESP 16; TEMP 36.5; O2SAT 98; BMI 35.0
--- NOTE | 2024-12-06 05:37 | CT_ITS ---
PROCEDURE INFORMATION: Exam: CT Head Without Contrast Exam date and time: 12/06/2024 5:56 AM Age: 49 years old Clinical indication: Pain; Headache; Additional info: Trauma, right sided numbness TECHNIQUE: Imaging protocol: Computed tomography of the head without contrast. Radiation optimization: All CT scans at this facility use at least one of these dose optimization techniques: automated exposure control; mA and/or kV adjustment per patient size (includes targeted exams where dose is matched to clinical indication); or iterative reconstruction. COMPARISON: No relevant prior studies available. FINDINGS: Brain: No hemorrhage. No acute cerebral edema. Unremarkable white matter. No mass effect or shift. Cerebral ventricles: No ventriculomegaly. Paranasal sinuses: Visualized sinuses are unremarkable. No fluid levels. Mastoid air cells: Visualized mastoid air cells are well aerated. Bones: Unremarkable. No acute fracture. Soft tissues: Unremarkable. IMPRESSION: No acute intracranial process.
--- NOTE | 2024-12-06 05:43 | CT_ITS ---
PROCEDURE INFORMATION: Exam: CTA Head With Contrast, Arteriography Exam date and time: 12/06/2024 5:59 AM Age: 49 years old Clinical indication: Pain; Headache; Additional info: Right sided numbness TECHNIQUE: Imaging protocol: Computed tomographic angiography of the head with contrast. Exam focused on the arteries. 3D rendering (Not supervised by radiologist): MIP and/or 3D reconstructed images were created by the technologist. Radiation optimization: All CT scans at this facility use at least one of these dose optimization techniques: automated exposure control; mA and/or kV adjustment per patient size (includes targeted exams where dose is matched to clinical indication); or iterative reconstruction. Contrast material: ISOVUE; Contrast volume: 80 ml; Contrast route: INTRAVENOUS (IV); COMPARISON: CT HEAD/BRAIN WO CON 12/06/2024 5:56 AM FINDINGS: ANTERIOR CIRCULATION: Right internal carotid artery: Intracranial segment is patent with no significant stenosis. No aneurysm. Right middle cerebral artery: No occlusion or significant stenosis. No aneurysm. Right anterior cerebral artery: No occlusion or significant stenosis. No aneurysm. Left internal carotid artery: Intracranial segment is patent with no significant stenosis. No aneurysm. Left middle cerebral artery: No occlusion or significant stenosis. No aneurysm. Left anterior cerebral artery: No occlusion or significant stenosis. No aneurysm. POSTERIOR CIRCULATION: Right vertebral artery: No occlusion or significant stenosis. No aneurysm. Left vertebral artery: No occlusion or significant stenosis. No aneurysm. Basilar artery: No occlusion or significant stenosis. No aneurysm. Right posterior cerebral artery: No occlusion or significant stenosis. No aneurysm. Left posterior cerebral artery: There is an hypoplastic/anaplastic P1 segment variation of normal anatomy. The P2 segment is supplied by a patent persistent trigeminal artery/P-comm. No occlusion or significant stenosis. No aneurysm. Brain: No hemorrhage. Unremarkable white matter. No mass effect. Cerebral ventricles: No ventriculomegaly. Bones/joints: Unremarkable. No acute fracture. Soft tissues: Unremarkable. IMPRESSION: Negative CTA Head. No evidence of intracranial large vessel stenosis or occlusion. No evidence of aneurysm or AVM.
--- NOTE | 2024-12-06 05:43 | CT_ITS ---
PROCEDURE INFORMATION: Exam: CTA Neck With Contrast Exam date and time: 12/06/2024 5:59 AM Age: 49 years old Clinical indication: Pain; Headache; Additional info: Right sided numbness TECHNIQUE: Imaging protocol: Computed tomographic angiography of the neck with contrast. Exam focused on the cervical segments of the vasculature. 3D rendering (Not supervised by radiologist): MIP and/or 3D reconstructed images were created by the technologist. Radiation optimization: All CT scans at this facility use at least one of these dose optimization techniques: automated exposure control; mA and/or kV adjustment per patient size (includes targeted exams where dose is matched to clinical indication); or iterative reconstruction. Contrast material: ISOVUE; Contrast volume: 80 ml; Contrast route: INTRAVENOUS (IV); COMPARISON: CT ANGIO HEAD 12/06/2024 5:59 AM FINDINGS: Right common carotid artery: No significant stenosis. No dissection or occlusion. Right internal carotid artery: The extracranial segment is patent with no significant stenosis. No dissection or occlusion. Right external carotid artery: No occlusion or significant stenosis. Left common carotid artery: No significant stenosis. No dissection or occlusion. Left internal carotid artery: The extracranial segment is patent with no significant stenosis. No dissection or occlusion. Left external carotid artery: No occlusion or significant stenosis. Right vertebral artery: No significant stenosis. No dissection or occlusion. Left vertebral artery: No significant stenosis. No dissection or occlusion. Soft tissues: No significant soft tissue swelling. Bones/joints: No acute process. IMPRESSION: Negative neck CTA. No evidence of great vessel stenosis or occlusion. No evidence of dissection. Two REFERENCES: NASCET CRITERIA. The degree of stenosis in the cervical segment of the internal carotid artery is based on NASCET criteria. Normal is no stenosis. Mild is less than 50% stenosis. Moderate is 50-69% stenosis. Severe is 70% to 99% stenosis. Total occlusion is no detectable patent lumen.
--- NOTE | 2024-12-06 05:45 | ED_ITS ---
Discharge Plan Disposition Patient Disposition: Home, Self-Care Chief Complaint: Head Injury Prescriptions Prescriptions: No Action levothyroxine 175 mcg tablet 175 mcg PO fluoxetine 40 mg capsule 40 mg PO Clenpiq 10 mg-3.5 gram- 12 gram/175 mL solution 175 ml PO DAILY Qty: 350 0RF Rx Instructions: take first dose at 5-9PM evening before colonoscopy; 2nd dose the next day approximately 5 hrs before colonoscopy Referrals Follow up/Referrals: Kely Muse APRN [Primary Care Provider] - See instructions Activity Restrictions/Add. Instructions Additional Instructions/Restrictions: At this time it was felt you are safe to be discharged home. If new or worsening symptoms please do not hesitate to return the emergency department. As discussed there is no way to completely rule out a bruise to your brain or a stroke, if things change come back immediately to the emergency department. Clinical Impressions Clinical Impression: Blunt head trauma, Paresthesias Print Language Print Language: Tamazight Discharge ED Provider: Kalpesh Devine General Adult HPI <Kalpesh Devine MD - Last Filed: 12/06/24 07:18> General Chief complaint: Head Injury Stated complaint: AO 1930 head pain, face numbness Time Seen by Provider: 12/06/24 05:35 Mode of Arrival: Ambulatory Source of Information: Patient Limitations: No Limitations Description of Symptoms (Recalled from ER Triage Doc. by RN): Patient hit the Right side of the front of her head on a shopping cart; States from her head down the back of her neck hurts; states 1/2 of her lip is numb History of Present Illness HPI narrative: 49-year-old female with history of hypothyroidism presents for multiple complaints. She struck her head on a metal shopping yesterday evening. She had pain and felt a little ill thereafter but was feeling better. She went to sleep around 11. She woke around 2:00 with right sided numbness. She went back to sleep and woke up again and it was persistent. She reports that she is numb/not feeling right on the right side of her face as well as her right arm and part of her right leg. She reports that nothing like this has happened before. She denies any weakness. She does not have a history of migraines. Denies any recent fever or illness. Related Data Home Medications ?Medication ?Instructions ?Recorded ?Confirmed fluoxetine 40 mg capsule 40 mg PO 03/14/22 04/08/23 levothyroxine 175 mcg tablet 175 mcg PO 03/14/22 04/08/23 Previous Rx's ?Medication ?Instructions ?Recorded sod picosulf 10 mg-magnes 3.5 175 ml PO DAILY 2 doses #350 mL 11/25/24 gram-citric 12 gram/175 mL oral solution (Clenpiq) Allergies Allergy/AdvReac Type Severity Reaction Status Date / Time Penicillins (PENICILLINS) Allergy Mild Verified 04/08/23 15:12 PFS <Kalpesh Devine MD - Last Filed: 12/06/24 07:18> PFS Disclaimer: The information contained in this section may have been updated after the patient was seen, as this information can be updated by other users. Medical History Anxiety History of hypothyroidism Surgical History H/O gastric sleeve History of delivery History of wisdom tooth extraction, class I edentulism Social History Smoking Status: Current some day smoker alcohol intake: never current occupational status: other Travel in the last 8 weeks: None Have you lived/traveled outside US in past 30 days?: No Contact w/someone who lives/traveled outside US past 30 days?: No Exposure to someone with infectious disease in past 14 days?: No Do you have a fever (greater than 100.4 F or 38 C)?: No Have you tested positive for COVID-19: No Exposed to someone with COVID-19 in past 14 days?: No Do you have a sore throat?: No Do you have a cough?: No Do you have any weakness?: No Do you have any diarrhea?: No Are you experiencing any unusual bleeding?: No Do you have any muscle aches/pain?: No Do you have any abdominal pain?: No Are you experiencing loss of taste or smell?: No Other Medical History Have you received the Flu Vaccine for this season: Yes Have you received the Pneumonia Vaccine: No <Kalpesh Devine MD - Last Filed: 12/06/24 07:18> ROS Obtained: Yes All systems reviewed & no additional complaints except as documented Physical Exam <Kalpesh Devine MD - Last Filed: 12/06/24 07:18> General General appearance: alert and in no apparent distress Head Head exam: atraumatic and normocephalic Eye Eye exam: Present normal appearance, PERRL and EOMI ENT ENT exam: Present normal oropharynx and normal external ear exam Neck Neck exam: Present normal inspection and full ROM Chest Chest inspection: Present normal inspection and symmetric chest wall rise; Absent tenderness Respiratory Respiratory exam: Present normal lung sounds bilaterally; Absent respiratory distress Cardiovascular Cardiovascular exam: Present regular rate and normal rhythm Abdominal Exam Abdominal exam: Present soft; Absent distention, tenderness or guarding Extremities Exam Extremities exam: Present normal inspection; Absent edema or joint swelling Back Exam Back exam: Present normal inspection; Absent tenderness Neurological Exam Neurological exam: Present alert, oriented X3 and motor sensory deficit (Decree sensation to the right face, right upper extremity, upper portion of the right lower extremity. Normal motor tone, no cerebellar deficits, no facial asymmetry) Psychiatric Psychiatric exam: Present normal affect and normal mood Skin Skin exam: Present warm, dry and normal color Lymphatic Lymphatic Findings: no adenopathy Medical Decision Making <Kalpesh Devine MD - Last Filed: 12/06/24 07:18> Medical Records Medical records reviewed: Yes I reviewed the patient's medical records. Screening: Per USPSTF and CDC recommendations, given the prevalence of disease in our region, it is our hospital?s policy to screen for HIV and viral Hepatitis for all patients aged 18 and over and those with ongoing risk factors. Omega Inquiry Pt receiving controlled substance: No Omega was queried for this patient: No Vital Signs: 12/06/24 05:26 12/06/24 06:31 12/06/24 07:00 Temperature 97.7 F Temperature Source Oral Pulse Rate 60 74 Pulse Rate [Right Radial] 62 Respiratory Rate 16 Blood Pressure 112/50 L 101/66 L Blood Pressure [Right Arm] 111/79 Blood Pressure Mean [Right Arm] 89 Blood Pressure Source [Right Arm] Automatic Cuff Blood Pressure Position [Right Arm] Supine 02 Sat by Pulse Oximetry 98 98 96 Oxygen Delivery Method Room Air Room Air Room Air 12/06/24 07:30 Temperature Temperature Source Pulse Rate 60 Pulse Rate [Right Radial] Respiratory Rate Blood Pressure 105/48 L Blood Pressure [Right Arm] Blood Pressure Mean [Right Arm] Blood Pressure Source [Right Arm] Blood Pressure Position [Right Arm] 02 Sat by Pulse Oximetry 97 Oxygen Delivery Method Room Air Lab Data Lab results reviewed: Yes I reviewed the patient's lab results. Lab Results 12/06/24 05:43: PT 10.4, INR 0.94, APTT 27.1 12/06/24 05:45: WBC 7.0, RBC 4.22, Hgb 13.2, Hct 39.5, MCV 93.6, MCH 31.3 H, MCHC 33.4, RDW 12.3, Plt Count 287, MPV 9.6, Neut % (Auto) 60.8, Lymph % (Auto) 27.9, [place] % (Auto) 8.6, Eos % (Auto) 1.7, Baso % (Auto) 0.3, Neut # (Auto) 4.3, Lymph # (Auto) 2.0, [place] # (Auto) 0.6, Eos # (Auto) 0.1, Baso # (Auto) 0.0, Sodium 140, Potassium 3.9, Chloride 105, Carbon Dioxide 28, Anion Gap 10.9, BUN 24 H, Creatinine 0.80, Estimated Creat Clear 134, Estimated GFR 77, Est GFR ( Amer) 93, Glucose 116 H, Calcium 9.0, Magnesium 1.8, Total Bilirubin 0.9, AST 24, ALT 22, Alkaline Phosphatase 89, Total Protein 7.1, Albumin 4.2, Globulin 2.9, Albumin/Globulin Ratio 1.4 12/06/24 05:45 12/06/24 05:45 Orders (Tests/Meds): ED MEDICATIONS Discontinued Medications Generic Name Dose Route Start Last Admin Trade Name Joeyq PRN Reason Stop Dose Admin Acetaminophen 1,000 mg 12/06/24 05:43 12/06/24 05:47 Acetaminophen 500mg Tab PO 12/06/24 05:44 1,000 mg ONCE ONE Administration Magnesium Sulfate 2 gm in 50 mls @ 150 mls/hr 12/06/24 06:42 12/06/24 06:52 Magnesium Sulfate 2gm/50ml Premix IV 12/06/24 07:01 150 mls/hr ONCE ONE Administration Iopamidol 80 ml 12/06/24 05:56 12/06/24 06:01 Iopamidol-370 (76%);100ml Bottle IV 12/06/24 05:57 80 ml ONCE ONE Administration Ketorolac Tromethamine 30 mg 12/06/24 06:42 12/06/24 06:52 Ketorolac 30mg/Ml Vial IV 12/06/24 06:43 30 mg ONCE ONE Administration Prochlorperazine Edisylate 10 mg 12/06/24 05:43 12/06/24 05:47 Prochlorperazine 10mg/2ml Vial IV 12/06/24 05:44 10 mg ONCE ONE Administration Sodium Chloride 50 ml 12/06/24 05:56 12/06/24 06:01 0.9 % Sodium Chloride 50 Ml Vial IV 12/06/24 05:57 50 ml ONCE ONE Administration Sodium Chloride 10 ml 12/06/24 05:56 12/06/24 06:01 Sodium Chloride 0.9% 10ml Syr (Rad Only) IV 12/06/24 05:57 10 ml ONCE ONE Administration ORDERS Category Date Time Status CT angio head Stat Cat Scan 12/06/24 05:[address] angio neck Stat Cat Scan 12/06/24 05:[address] head/brain wo con Stat Cat Scan 12/06/24 05:37 Completed CBC w/Auto Diff [Complete Blood Count Auto Diff] Stat Lab 12/06/24 05:45 Completed CMP [Comprehensive Metabolic Panel] Stat Lab 12/06/24 05:45 Completed INR [Prothrombin Time INR] Stat Lab 12/06/24 05:43 Completed Magnesium Stat Lab 12/06/24 05:45 Completed PTT [Activated Partial Thrombo Time] Stat Lab 12/06/24 05:43 Completed Medical Decision Narrative: 49-year-old female presents with right sided numbness that started few hours after she struck her head with a metal shopping cart. Last known normal 11 PM when she went to sleep. History was obtained via interactive discussion with patient, family, chart review. On arrival, patient is [afebrile, hemodynamically stable, satting appropriately, alert, oriented x4, GCS 15], moving all extremities spontaneously. Full physical exam performed and significant for right-sided decreased sensation. NIH of 1 for sensation. Differential includes but is not limited to intracranial trauma, complex migraine, stroke. Patient was given Tylenol and Compazine for symptomatic management and correction of underlying abnormalities. Workup initiated including CT head, CTA head and neck, basic lab. On re-evaluation, patient [remains afebrile, HD stable.] Laboratory workup independently interpreted by me and significant for no significant electrolyte derangement, normal, no leukocytosis. Imaging independently interpreted by me and significant for no evidence of intracranial bleed or large vessel occlusion.. See radiology read for full review of final results. Underlying etiology of patient's presentation remains unclear. Migraine cocktail is pending, will assess for symptomatic improvement. At this time care handed off to oncoming physician. <Ham Coburn MD - Last Filed: 12/06/24 07:44> Vital Signs: 12/06/24 05:26 12/06/24 06:31 12/06/24 07:00 Temperature 97.7 F Temperature Source Oral Pulse Rate 60 74 Pulse Rate [Right Radial] 62 Respiratory Rate 16 Blood Pressure 112/50 L 101/66 L Blood Pressure [Right Arm] 111/79 Blood Pressure Mean [Right Arm] 89 Blood Pressure Source [Right Arm] Automatic Cuff Blood Pressure Position [Right Arm] Supine 02 Sat by Pulse Oximetry 98 98 96 Oxygen Delivery Method Room Air Room Air Room Air 12/06/24 07:30 Temperature Temperature Source Pulse Rate 60 Pulse Rate [Right Radial] Respiratory Rate Blood Pressure 105/48 L Blood Pressure [Right Arm] Blood Pressure Mean [Right Arm] Blood Pressure Source [Right Arm] Blood Pressure Position [Right Arm] 02 Sat by Pulse Oximetry 97 Oxygen Delivery Method Room Air Lab Data Lab Results 12/06/24 05:43: PT 10.4, INR 0.94, APTT 27.1 12/06/24 05:45: WBC 7.0, RBC 4.22, Hgb 13.2, Hct 39.5, MCV 93.6, MCH 31.3 H, MCHC 33.4, RDW 12.3, Plt Count 287, MPV 9.6, Neut % (Auto) 60.8, Lymph % (Auto) 27.9, [place] % (Auto) 8.6, Eos % (Auto) 1.7, Baso % (Auto) 0.3, Neut # (Auto) 4.3, Lymph # (Auto) 2.0, [place] # (Auto) 0.6, Eos # (Auto) 0.1, Baso # (Auto) 0.0, Sodium 140, Potassium 3.9, Chloride 105, Carbon Dioxide 28, Anion Gap 10.9, BUN 24 H, Creatinine 0.80, Estimated Creat Clear 134, Estimated GFR 77, Est GFR ( Amer) 93, Glucose 116 H, Calcium 9.0, Magnesium 1.8, Total Bilirubin 0.9, AST 24, ALT 22, Alkaline Phosphatase 89, Total Protein 7.1, Albumin 4.2, Globulin 2.9, Albumin/Globulin Ratio 1.4 Orders (Tests/Meds): ED MEDICATIONS Discontinued Medications Generic Name Dose Route Start Last Admin Trade Name Freq PRN Reason Stop Dose Admin Acetaminophen 1,000 mg 12/06/24 05:43 12/06/24 05:47 Acetaminophen 500mg Tab PO 12/06/24 05:44 1,000 mg ONCE ONE Administration Magnesium Sulfate 2 gm in 50 mls @ 150 mls/hr 12/06/24 06:42 12/06/24 06:52 Magnesium Sulfate 2gm/50ml Premix IV 12/06/24 07:01 150 mls/hr ONCE ONE Administration Iopamidol 80 ml 12/06/24 05:56 12/06/24 06:01 Iopamidol-370 (76%);100ml Bottle IV 12/06/24 05:57 80 ml ONCE ONE Administration Ketorolac Tromethamine 30 mg 12/06/24 06:42 12/06/24 06:52 Ketorolac 30mg/Ml Vial IV 12/06/24 06:43 30 mg ONCE ONE Administration Prochlorperazine Edisylate 10 mg 12/06/24 05:43 12/06/24 05:47 Prochlorperazine 10mg/2ml Vial IV 12/06/24 05:44 10 mg ONCE ONE Administration Sodium Chloride 50 ml 12/06/24 05:56 12/06/24 06:01 0.9 % Sodium Chloride 50 Ml Vial IV 12/06/24 05:57 50 ml ONCE ONE Administration Sodium Chloride 10 ml 12/06/24 05:56 12/06/24 06:01 Sodium Chloride 0.9% 10ml Syr (Rad Only) IV 12/06/24 05:57 10 ml ONCE ONE Administration ORDERS Category Date Time Status CT angio head Stat Cat Scan 12/06/24 05:[address] angio neck Stat Cat Scan 12/06/24 05:[address] head/brain wo con Stat Cat Scan 12/06/24 05:37 Completed CBC w/Auto Diff [Complete Blood Count Auto Diff] Stat Lab 12/06/24 05:45 Completed CMP [Comprehensive Metabolic Panel] Stat Lab 12/06/24 05:45 Completed INR [Prothrombin Time INR] Stat Lab 12/06/24 05:43 Completed Magnesium Stat Lab 12/06/24 05:45 Completed PTT [Activated Partial Thrombo Time] Stat Lab 12/06/24 05:43 Completed Medical Decision Narrative: 49-year-old female presents with right sided numbness that started few hours after she struck her head with a metal shopping cart. Last known normal 11 PM when she went to sleep. History was obtained via interactive discussion with patient, family, chart review. On arrival, patient is [afebrile, hemodynamically stable, satting appropriately, alert, oriented x4, GCS 15], moving all extremities spontaneously. Full physical exam performed and significant for right-sided decreased sensation. NIH of 1 for sensation. Differential includes but is not limited to intracranial trauma, complex migraine, stroke. Patient was given Tylenol and Compazine for symptomatic management and correction of underlying abnormalities. Workup initiated including CT head, CTA head and neck, basic lab. On re-evaluation, patient [remains afebrile, HD stable.] Laboratory workup independently interpreted by me and significant for no significant electrolyte derangement, normal, no leukocytosis. Imaging independently interpreted by me and significant for no evidence of intracranial bleed or large vessel occlusion.. See radiology read for full review of final results. Underlying etiology of patient's presentation remains unclear. Migraine cocktail is pending, will assess for symptomatic improvement. At this time care handed off to oncoming physician. Ham Coburn: Upon assumption of care patient was hemodynamically stable. I had prolonged discussion with patient at bedside. She struck her head last night, last known normal approximately 11 PM. Symptoms onset a few hours after striking her head. Noncontrasted CT scan informally interpreted by me no acute large intracranial hemorrhage. CTA head no acute abnormality, CTA neck pending. Upon repeat evaluation the patient she did have some resolution of her symptoms status post migraine cocktail. Current working differential includes contrecoup injury, complex migraine, among others. CVA is certainly a possibility although I feel it is extremely unlikely in the temporal relationship to her trauma the makes the former more likely. She does not have any significant cardiovascular risk factors nonetheless the fact that I cannot rule out CVA without MRI was discussed at bedside. CTA neck negative. Upon repeat evaluation shared decision making discussion was had and patient wants to proceed with outpatient management at this time was given multiple return precautions and verbalized understanding. I do think this approach is reasonable given that even if she did have a contrecoup injury without progressive symptoms or hemorrhage on Noncon CT treatment will be supportive. Procedures <Kalpesh Devine MD - Last Filed: 12/06/24 07:18> Risk/Benefits of Procedure(s) Were Explained: Yes Critical Care <Kalpesh Devine MD - Last Filed: 12/06/24 07:18> Critical Care Time Critical Care Time: Yes Attestation: On 12/06/24, the high probability of a clinically significant, sudden or life threatening deterioration of the following system(s) required my full and direct attention, intervention and personal management. The time I documented below is in addition to time spent performing reported procedures but includes the following listed in this critical care notation. Total Time Total Critical Care Time: 35
[2024-12-06] MEDS: PROCHLORPERAZINE 10MG/2ML VIAL 10 MG IV (05:47)
[2024-12-06] MEDS: ACETAMINOPHEN 500MG TAB 1000 MG PO (05:47)
[2024-12-06 05:54] LABS: Basophils % 0.3 % (0.1-2.0); Eosinophils # 0.1 K/mm3 (0.0-0.4); Eosinophils % 1.7 % (0.1-12.0); Hematocrit 39.5 % (37.0-47.0); Hemoglobin 13.2 g/dL (12.2-16.2); Lymphocytes % 27.9 % (10-50); Mean Corpuscular HGB Conc 33.4 g/dL (31.8-35.4); Mean Corpuscular Hemoglobin 31.3 pg (27.0-31.2); Mean Corpuscular Volume 93.6 fl (81-99); Mean Platelet Volume 9.6 fl (7.4-10.4); Monocytes # 0.6 K/mm3 (0.1-1.0); Monocytes % 8.6 % (1.7-9.3); Neutrophils # 4.3 K/mm3 (1.8-7.8); Neutrophils % 60.8 % (37.0-80.0); Platelet Count 287 K/mm3 (142-424); Red Blood Count 4.22 M/mm3 (4.20-5.40); Red Cell Distribution Width 12.3 % (11.5-17.5)
[2024-12-06 06:00] LABS: Albumin Level 4.2 g/dl (3.5-5.0); Chloride 105 mmol/L (98-107); Potassium 3.9 mmoL/L (3.5-5.1); Sodium 140 mmol/L (136-145)
[2024-12-06] MEDS: 0.9 % SODIUM CHLORIDE 50 ML VIAL IV (06:01)
[2024-12-06] MEDS: IOPAMIDOL-370 (76%);100ML BOTTLE 80 ML IV (06:01)
[2024-12-06] MEDS: SODIUM CHLORIDE 0.9% 10ML SYR (RAD ONLY) 10 ML IV (06:01)
[2024-12-06 06:03] LABS: Alanine Aminotransferase 22 U/L (12-78); Albumin/Globulin Ratio 1.4 (1.1-1.8); Alkaline Phosphatase 89 U/L (38-126); Anion Gap 10.9 mEq/L (5-15); Aspartate Amino Transferase 24 U/L (14-36); Bilirubin,Total 0.9 mg/dl (0.2-1.3); Blood Urea Nitrogen 24 mg/dl (7-17); Carbon Dioxide 28 mmol/L (22.0-30.0); Creatinine Clearance Estimated 134 mL/min (50-200); Estimated Glomerular Filt Rate 77 ml/min (>60); GFR (African American) 93 ML/MIN (>60); Globulin 2.9 g/dL (1.3-3.2); Magnesium 1.8 mg/dl (1.6-2.3); Total Protein,Serum 7.1 g/dl (6.3-8.2)
--- NOTE | 2024-12-06 06:03 | PC.NURSE ---
Pt back from CT scan
[2024-12-06 06:04] LABS: Glucose 116 mg/dl (74-100)
[2024-12-06 06:06] LABS: Activated Partial Thrombo Time 27.1 seconds (22.5-28.5); INR 0.94 (0.9-1.1); Prothrombin Time 10.4 seconds (9.2-12.1)
[2024-12-06 06:31] VITALS: BP 112/50; PULSE 60; O2SAT 98
[2024-12-06] MEDS: KETOROLAC 30MG/ML VIAL 30 MG IV (06:52)
[2024-12-06] MEDS: MAGNESIUM SULFATE IN WATER 2 GM/50 ML PIGGYBACK IV (06:52)
[2024-12-06 07:00] VITALS: BP 101/66; PULSE 74; O2SAT 96
[2024-12-06 07:30] VITALS: BP 105/48; PULSE 60; O2SAT 97
--- NOTE | 2024-12-06 07:36 | PC.NURSE ---
ROUNDED ON THE PT. THE PT VOICES THAT SHE DOES NOT NEED ANYTHING AT THIS TIME. CALL LIGHT IS WITHIN REACH OF THE PT.
[2024-12-06 07:49] VITALS: BP 105/48; PULSE 59; RESP 17; TEMP 36.5; O2SAT 97
== END 2024-12-06 07:51 | disposition home or self-care (01) ==
PROVIDERS: Emergency Provider Emergency Medicine; PCP Nurse Practitioner
DX: S09.8XXA Other specified injuries of head, initial encounter (principal); R51.9 Headache, unspecified; R20.2 Paresthesia of skin; Z72.0 Tobacco use; W22.8XXA Striking against or struck by other objects, initial encounter; Y93.89 Activity, other specified; Y92.512 Supermarket, store or market as the place of occurrence of the external cause
CPT/HCPCS: 70450; 70496; 70498; 80053; 83735; 85025; 85610; 85730; 96365; 96374; 96375; 99291; J0780; J1885; J3475; Q9967

== ENCOUNTER 2024-12-08 08:26 | Day surgery (SDC) | payer BC, SELFPAY ==
[2024-12-08 08:36] VITALS: BMI 35.5
[2024-12-08 08:48] VITALS: BP 128/68; PULSE 76; RESP 17; TEMP 36.6; O2SAT 97
[2024-12-08] MEDS: LACTATED RINGERS 1000ML 1,000 ML 50 ML IV (08:52)
--- NOTE | 2024-12-08 08:52 | HMH.SCOPE ---
Procedure: Date: 12/08/24 Patient Date of :: 1975 Procedure Performed:: Esophagogastroduodenoscopy with biopsy Colonoscopy Indications:: Melena Screening Performing Provider:: Zachary Devi MD Referring Provider:: . Sedation:: Monitored anesthesia care Procedure:: After informed consent was obtained the patient was taken to the endoscopy suite. Sedation ensued after the patient was transferred to the left lateral decubitus position. Pulse, blood pressure, and oxygen saturation were monitored throughout the procedure. The endoscope was advanced beyond the duodenal bulb. Retroflexion within the gastric lumen was accomplished. The gastroscope was carefully removed. Digital rectal exam revealed no significant abnormality. The colonoscope was placed in position. The entire colon was evaluated. The colonoscope was carefully removed and the patient was transferred to recovery in stable condition. Please see findings and specimens below for detail. Findings:: Mild streaking gastritis distally Focal stricture along mid gastric body consistent with prior bariatric intervention Lack of continuous/long segment narrowing (possible partial anatomic reversion status post bariatric intervention) No obvious ulceration or sign of active bleeding Bowel preparation moderate Fairly significant spasticity Fairly significant tortuosity of sigmoid Specimens:: Antral biopsy Recommendations:: Follow-up pathology Likely repeat colonoscopy in 3 years secondary to moderate bowel preparation, spasticity, and tortuosity. Complications:: No immediate Estimated blood obtained (mL): 1 Colonoscopy Component Colonoscopy Component Was a colonoscopy performed during today's procedure?: Yes Recommended follow up colonoscopy of at least 10 years?: No If no, follow up colonoscopy recommended in ___ years?: (See above) Reason for not recommending >/= 10 yr follow-up interval?: (See above)
[2024-12-08 08:54] LABS: Urine Pregnancy, HCG Qual. Negative (Negative)
--- NOTE | 2024-12-08 08:56 | P.PNANES_ITS ---
[facility] Disclaimer: The information contained in this section may have been updated after the patient was seen, as this information can be updated by other users. Medical History (Updated 12/08/24 @ 08:41 by Molly Huang RN) Migraine Psoriasis History of gastroesophageal reflux (GERD) Hyperlipidemia History of anemia History of hypothyroidism Anxiety Surgical History History of wisdom tooth extraction, class I edentulism H/O gastric sleeve History of delivery Family History (Updated 12/08/24 @ 08:43 by Molly Huang RN) Other Colon polyps Social History Smoking Status: Current some day smoker alcohol intake: never substance use type: denies use current occupational status: other Travel in the last 8 weeks: None [facility] Anesthesia Checklist Patient Identification Patient Identification: Arm Band Structural Data Admitted From: Home Planned Operative Procedure/s: EGD/Colonoscopy Consent for Planned Operative Procedure(s) Verified: Yes Verified Documents: Surgical Consent and History and Physical NPO Status Verified Time NPO: 00:00 Additional verifications Anesthesia Reactions: No Airway Assessment Mallampati Score:: Class II C-Spine Mobility Assessed: Yes TMJ Mobility Assessed: Yes Dentition: Good Dentition Neurological Assessment Level of Consciousness: Awake, Alert and Appropriate Anesthesia Plan Anesthesia Risk discussed: Yes Anesthesia Plan: Verified ASA Class: II Anesthesia Type: MAC
[2024-12-08 09:05] VITALS: O2SAT 99
[2024-12-08 09:49] VITALS: BP 112/61; PULSE 79; RESP 16; TEMP 36.2; O2SAT 90
[2024-12-08 09:59] VITALS: BP 102/63; PULSE 80; RESP 18; O2SAT 96
[2024-12-08 10:09] VITALS: BP 111/68; PULSE 77; RESP 18; O2SAT 95
[2024-12-08 10:19] VITALS: BP 103/62; PULSE 76; RESP 18; O2SAT 95
== END 2024-12-08 10:19 | disposition home or self-care (01) ==
PROVIDERS: PCP Nurse Practitioner; Visit Provider Surgery
PROC: 0DJD8ZZ Inspection of Lower Intestinal Tract, Via Natural or Artificial Opening Endoscopic (ICD-10-PCS; CPT 43239; principal; 2024-12-08 09:50)
DX: K29.70 Gastritis, unspecified, without bleeding (principal); K92.1 Melena; Z12.11 Encounter for screening for malignant neoplasm of colon
CPT/HCPCS: 43239; 45378; 81025; J2704; J3010; J7120

== ENCOUNTER 2025-01-04 14:37 | Outpatient (CLI) | payer BC, SELFPAY ==
--- NOTE | 2025-01-04 14:41 | XR_ITS ---
FINAL REPORT CLINICAL HISTORY: LT FOOT PAIN from fall yesterday, bruising & swelling to 2nd,3rd, & 4th digits. COMPARISON: None FINDINGS: AP, oblique and lateral views of the left foot were obtained. There is an intra-articular fracture at the base of the proximal phalanx of the third toe. Fracture line extends to the MTP joint. No additional fracture identified. The joint spaces are preserved. Soft tissues are unremarkable. IMPRESSION: Intra-articular fracture base of the third proximal phalanx. Reviewed, Interpreted and Dictated by Manuela Alfonso MD Transcribed by Sheila Hdez Authenticated and [facility]
== END 2025-01-04 23:59 | disposition home or self-care (01) ==
LOC: RAD 14:38
PROVIDERS: PCP Nurse Practitioner; Visit Provider Family Medicine
DX: M79.672 Pain in left foot (principal)
CPT/HCPCS: 73630

== ENCOUNTER 2025-01-19 07:55 | Outpatient (CLI) | payer BC, SELFPAY ==
--- NOTE | 2025-01-19 07:56 | FL_ITS ---
FINAL REPORT CLINICAL HISTORY: Dysphagia, Acid Reflux, HX of gastric sleeve DAP 1575.93 FT 0.29 FINDINGS: ESOPHAGUS,UPPER GI WITH SBFT UPPER GI EXAM HISTORY: Abdominal pain, nausea. PROCEDURE: The patient ingested barium. Effervescent crystals were also administered. Spot and overhead films were obtained. FINDINGS: The esophagus is normal. There is a small sliding type hiatal hernia. There is no gastroesophageal reflux. Peristalsis is normal. The rugal fold pattern of the stomach is normal. There are postoperative changes of gastric sleeve surgery. The duodenal bulb is normal. Fluoroscopy time: 1 minute 14 seconds Fluoro dose: 1823.88 DAP in uGym2 IMPRESSION: 1. Small sliding-type hiatal hernia. 2. Postoperative changes of gastric sleeve surgery. 3. Otherwise, unremarkable exam. SBFT: The animal nursery worker film is normal. There is no evidence of obstruction. The mucosal fold pattern is normal. The terminal ilium is normal. IMPRESSION: Normal SBFT. Films reviewed , interpreted and dictated by Dr. Katz. Transcribed by Terry Valerio PA-C. Reviewed, Interpreted and Dictated by Nessa Katz MD Transcribed by CASS Joiner Authenticated and [facility]
--- NOTE | 2025-01-19 07:56 | FL_ITS ---
FINAL REPORT CLINICAL HISTORY: Dysphagia, Acid Reflux, HX of gastric sleeve DAP 1823.88 FT 1.14 FINDINGS: ESOPHAGUS,UPPER GI WITH SBFT UPPER GI EXAM HISTORY: Abdominal pain, nausea. PROCEDURE: The patient ingested barium. Effervescent crystals were also administered. Spot and overhead films were obtained. FINDINGS: The esophagus is normal. There is a small sliding type hiatal hernia. There is no gastroesophageal reflux. Peristalsis is normal. The rugal fold pattern of the stomach is normal. There are postoperative changes of gastric sleeve surgery. The duodenal bulb is normal. Fluoroscopy time: 1 minute 14 seconds Fluoro dose: 1823.88 DAP in uGym2 IMPRESSION: 1. Small sliding-type hiatal hernia. 2. Postoperative changes of gastric sleeve surgery. 3. Otherwise, unremarkable exam. SBFT: The edge sander film is normal. There is no evidence of obstruction. The mucosal fold pattern is normal. The terminal ilium is normal. IMPRESSION: Normal SBFT. Films reviewed , interpreted and dictated by Dr. Katz. Transcribed by Terry Valerio PA-C. Reviewed, Interpreted and Dictated by Nessa Katz MD Transcribed by CASS Joiner Authenticated and [facility]
[2025-01-19] MEDS: BARIUM SULFATE(LIQUID E-Z-PAQUE);355ML BOTTLE 355 ML PO (08:35)
[2025-01-19] MEDS: DIATRIZOATE MEG 66% & DIATRIZOATE NA 10% 30ML UDC 15 ML PO (08:36)
[2025-01-19] MEDS: BARIUM SULFATE (E-Z-HD 340GM);135ML BOTTLE 135 ML PO (08:36)
== END 2025-01-19 23:59 | disposition home or self-care (01) ==
LOC: RAD 07:56
PROVIDERS: PCP Nurse Practitioner; Visit Provider Surgery
DX: K21.9 Gastro-esophageal reflux disease without esophagitis (principal); R13.10 Dysphagia, unspecified
CPT/HCPCS: 74220; 74246; 74248; Q9963

== ENCOUNTER 2025-01-27 11:19 | Outpatient (CLI) | payer BC, SELFPAY ==
--- NOTE | 2025-01-27 11:23 | XR_ITS ---
FINAL REPORT CLINICAL HISTORY: lt foot pain after fall FINDINGS: LEFT FOOT Three views of the left foot demonstrate an intra-articular fracture at the base of the proximal phalanx of the third toe. No other fracture is identified. IMPRESSION: Intra-articular fracture of the base of the proximal phalanx of the third toe. Reviewed, Interpreted and Dictated by Manuela Alfonso MD Transcribed by Shira Mejia Authenticated and [facility]
== END 2025-01-27 23:59 | disposition home or self-care (01) ==
LOC: RAD 11:19
PROVIDERS: PCP Nurse Practitioner; Visit Provider Physician Assistant
DX: S92.512A Displaced fracture of proximal phalanx of left lesser toe(s), initial encounter for closed fracture (principal)
CPT/HCPCS: 73630

== ENCOUNTER 2025-02-22 11:46 | Outpatient (CLI) | payer BC, SELFPAY ==
--- NOTE | 2025-02-22 11:48 | XR_ITS ---
FINAL REPORT CLINICAL HISTORY: f/u; denies foot pain COMPARISON: 01/27/2025 FINDINGS: LEFT FOOT Three views of the left foot demonstrate once again an oblique fracture of the medial base of the third proximal phalanx, mildly displaced. The fracture does extend to the articular surface. Faint callus formation appears to be present. The visualized joint spaces are normally aligned. The soft tissues are unremarkable. IMPRESSION: Faint callus at the site of the oblique fracture, medial base of the third proximal phalanx as described. Reviewed, Interpreted and Dictated by Salvador Lora MD Transcribed by Asmita Long Authenticated and . [facility]
== END 2025-02-22 23:59 | disposition home or self-care (01) ==
LOC: RAD 11:46
PROVIDERS: PCP Nurse Practitioner; Visit Provider Physician Assistant
DX: S92.502D Displaced unspecified fracture of left lesser toe(s), subsequent encounter for fracture with routine healing (principal)
CPT/HCPCS: 73630

== ENCOUNTER 2025-03-22 09:10 | Outpatient (CLI) | payer BC, SELFPAY ==
--- OUTSIDE RECORDS SUMMARY | 2025-03-22 09:15 | XMS_ITS | Continuity of Care Document ---
Author Organization [place] - [facility] & [facility]ariat[facility] and Adv Surg Address [address] [place] [address] Care Team Providers Care Child Advocate Name Role Phone ATIF THOMPSON Primary Care Provider Assessment No assessment recorded. Plan of Treatment Reminders Order Date Submit Date Provider Last Modified By Organization Details Last Modified Time Details Appointments OV EST 20 2024 08:20A M José Manuel Wilde, DNP, DISK RECORDIST, RECORDS MANAGER-C Not available Not available Not available Lab iron + TIBC + ferritin, serum 2024 025 [facility], [address], [address], [place], [address], 02/13/2025 03:38:25 folate, serum 2024 025 [facility], [address], [address], [place], [address], 02/13/2025 03:38:29 prealbumi n, serum 2024 025 [facility], [address], [address], [place], [address], 02/13/2025 03:38:32 thiamine, QN, blood 2024 025 [facility], [address], [address], [place], [address], 02/13/2025 03:38:31 methylmal lorena, QN, serum or plasma 2024 025 [facility], [address], [address], [place], [address], 02/13/2025 03:38:32 vitamin D, 25-hydrox y, total, serum 2024 025 [facility], [address], [address], [place], [address], 02/13/2025 03:38:31 vitamin E, serum 2024 025 SHAIST[facility], [address], [address], [place], [address], 02/13/2025 03:38:28 vitamin A (retinol) , serum 2024 025 [facility], [address], [address], [place], [address], 02/13/2025 03:38:30 TSH + free T4, serum 2024 025 [facility], [address], [address], [place], [address], 02/13/2025 03:38:25 CBC w/ auto diff 2024 025 [facility], [address], [address], [place], [address], 02/13/2025 03:38:26 CMP, serum or plasma 2024 025 [facility], [address], [address], [place], [address], 02/13/2025 03:38:27 HbA1c (hemoglob in A1c), blood 2024 025 [facility], [address], [address], [place], [address], 02/13/2025 03:38:29 lipid panel, serum 2024 025 [facility] [facility], [address], [address], [place], [address], 02/13/2025 03:38:28 Referral None recorded. Procedures None recorded. Surgeries None recorded. Imaging None recorded. Medication Orders famotidin e 20 mg tablet 2024 025 [facility], [address] [place] [address], [address], [place], [address], 02/09/2025 15:14:37 omeprazol e 20 mg capsule,d elayed release 2024 formerly [facility], [address] [place] [address], [facility] [address], [place], [address], 02/09/2025 15:14:36 Patient TargetsNo targets recorded. Patient InstructionsNo instructions recorded. Reason for Referral None Reported. Problems Name Problem SNOMED Code Status Onset Date Resolution Date Notes Provider Name and Address Organization Details Recorded Time Gastroesophag eal reflux disease without esophagitis 197720347 Active 2024 José Manuel Wilde DNP, DISK RECORDIST, RECORDS MANAGER-C [address], [place], [address] , [place] - [facility] - [place] & [place] 15:04:04 Abnormal weight gain 222465522 Active 2024 José Manuel Wilde DNP, DISK RECORDIST, RECORDS MANAGER-C [address], [place], [address] , [place] - [facility] - [place] 15:48:39 Esophageal dysphagia 59359881 Active 2024 José Manuel Wilde DNP, DISK RECORDIST, RECORDS MANAGER-C [address], [place], [address] , [place] [facility] - [place] & [place] 5 15:50:48 Hyperlipidemi a 68081419 Active 2021 Not Available [facility] 2 11:10:49 Hypothyroidis m 61555531 Active 2021 Not Available [facility] 2 11:10:50 Heartburn 71435035 Active 2021 Not Available [facility] 2 11:10:49 Disorder of function of stomach 054096875 Active 2021 Not Available [facility] 2 11:10:49 Psoriasis 3894094 Active 2021 Not Available [facility] 2 11:10:49 Psoriatic arthritis 505512800 Active 2021 Not Available [facility] 2 11:10:49 Obesity 401264248 Active 2022 José Manuel Wilde, DNP, DISK RECORDIST, RECORDS MANAGER-C [address] , [facility] [address] , [place] - [facility] & [place] 3 10:05:05 Problem Notes None recorded. Procedures Surgical History Date Name Laterality Status Provider Name and Address Organization Details Recorded Time 04/[address], [place] [address] [place], [address] , [place] [facility] & [place] 2 15:18:24 04/08 Date of Last Pap Smear completed NANCIE [address] RD, LD [address] [place], [address] , [place] [facility] - [place] & [place] 2 15:18:24 10/14 Sap Ppm Consultant Surgery completed NANCIE [address] RD, LD [address] , [place], [address] , [place] - [facility] & [place] 2 15:18:35 section completed Celeste EDGE - [facility] & [place] 2 16:39:58 extraction of wisdom tooth completed Celeste EDGE - [facility] & [place] 2 16:40:09 esophagogastroduodenoscopy completed Celeste EDGE [facility] & [place] 5 14:47:35 Colonoscopy completed Celeste EDGE [facility] & [place] 5 14:47:47 EGD completed Ruiz Daigle ju [facility] & [place] 2 10:58:38 laparoscopic sleeve gastrectomy completed Celeste Leach [facility] & [place] 2 08:31:34 Imaging Results None recorded. Procedure Notes None recorded. Medical Equipment None Reported. Allergies Allergen ID Allergen Name Allergen Category Reaction Reaction Severity Criticality Documentation Date Start Date Code Code System Note Provider Name and Address Organization Details Recorded Time Product containin g penicilli n (product) medicatio n Not available Not available Not available 07/09/2022 45643 [id number] SNOMED Celeste early, [facility] & [place] 2 16:36:10 Medications Name Sig Start Date Stop Date Status Note LastModified by Organization Details LastModified Time fluoxetine 40 mg capsule TAKE 1 CAPSULE BY MOUTH ONCE DAILY active Not Available Not Available No t Available levothyroxi ne 175 mcg tablet TAKE ONE TABLET BY MOUTH EACH MORNING ON AN EMPTY STOMACH FOR THYROID active Not Available Not Available No t Available azithromyci n 250 mg tablet 12/31 completed Not Available Not Available Not Available simvastatin 10 mg tablet 12/31 completed Not Available Not Available Not Available famotidine 20 mg tablet Take 1 tablet every day by oral route at bedtime. 2024 active Not Available Not Available Not Avai lable triamcinolo ne acetonide 0.1 % topical ointment 07/09 completed Not Available Not Available Not Available gabapentin 300 mg capsule Take 1 capsule 3 times a day by oral route for 7 days. 11/01 completed Not Available Not Available Not Available omeprazole 20 mg capsule,del ayed release Take 1 capsule twice a day by oral route as directed for 30 days. 2024 active Not Available Not Available Not Avai lable furosemide 20 mg tablet TAKE 1 TABLET BY MOUTH ONCE DAILY 07/09 completed Not Available Not Available Not Available celecoxib 100 mg capsule Take 1 capsule twice a day by oral route ] for 7 days. 11/01 completed Not Available Not Available Not Available hydrocortis one 2.5 % topical ointment 07/09 completed Not Available Not Available Not Available Vitamin D 02/09 completed Not Available Not Available Not Available Prozac 09/19 completed Not Available Not Available Not Available calcium citrate active Not Available Not Available Not Available multivitami n active Not Available Not Available Not Available collagen (bovine) 02/09 completed Not Available Not Available Not Available Humira Pen 40 mg/0.8 mL subcutaneou s kit 07/09 completed Not Available Not Available Not Available cholecalcif lorin (vitamin D3) 1,250 mcg (50,000 unit) capsule Take 1 capsule(s ) every week by oral route. active Not Available Not Available No t Available Nexplanon active Not Available Not Stephanie ilable Not Available Otezla 30 mg tablet 04/03 completed Not Available Not Available Not Available Otezla 09/19 completed Not Available Not Available Not Available Nexium 24HR 20mg 09/19 completed Not Available Not Available Not Available Otezla Starter 10 mg (4)-20 mg (4)-30 mg(47) tablets in a dose pack 30mg qd 09/19 completed Not Available Not Available Not Available Cosentyx Pen 300 mg/2 pens (150 mg/mL) subcutaneou s pen injector active Not Available Not Available Not Available QuickVue At-Home COVID-19 Test kit 07/09 completed Not Available Not Available Not Available Wegovy 0.25 mg/0.5 mL subcutaneou s pen injector INJECT 1 SYRINGE SUBCUTANE OUSLY ONCE A WEEK 02/09 completed Not Available Not Available Not Available Wegovy 0.5 mg/0.5 mL subcutaneou s pen injector INJECT 1 SYRINGE SUBCUTANE OUSLY ONCE A WEEK active Not Available Not Available No t Available Vitals Date Recorded Body height Body temperature Body mass index (BMI) Body weight Heart rate Systolic blood pressure Diastolic blood pressure Provider Name and Address Organization Details Last Updated DateTime 5 167.64 cm 98 [degF] 36.1 kg/m2 696209. 89 g 80 /min 110 mm[Hg] 70 mm[Hg] Celeste Leach [facility] & [place] 14:52:49 Social History Question Answer Notes LastModified by [employer] Details LastModified Time Tobacco Smoking Status Never Smoker NANCIE [address], LD [address], [place], [address], [facility] - NT [facility] & [place] 08/02/2022 15:18:19 Do You Have An Advance Directive? No [email or web address] Information not available 08/02/2022 Are You Blind Or Do You Have Difficulty Seeing? No [email or web address] Information not available 08/02/2022 What Was The Date Of Your Most Recent Tobacco Screening? 07/10/2022 [email or web address] Information not available 08/02/2022 Are You Passively Exposed To Smoke? No [email or web address] Information not available 08/02/2022 Sex: Female Functional Status Question Answer Note LastModified by [employer] Details LastModified Time Do you use any illicit or recreational drugs? No [email or web address] Information not available 07/09/2022 Do you or have you ever used any other forms of tobacco or nicotine? No [email or web address] Information not available 04/03/2023 What is your level of alcohol consumption? Occasional [email or web address] Information not available 07/09/2022 What is your exercise level? Occasional [email or web address] Information not available 08/02/2022 Mental Status None recorded. Family History Relationship Description Onset Age of this Age Resolved Age Notes LastModified by Organization Details LastModified Time Father Obese [email or web address] Not available 02/09/2025 14:43:27 Father Diabetes mellitus [email or web address] Not available 02/09 14:43:27 Father Hypertensive disorder Not available 16:38:29 Father Hypercholest erolemia [email or web address] Not available 16:38:39 Father Sleep disorder [email or web address] Not available 16:38:48 Paternal Grandmother Hypertensive disorder [email or web address] Not available 16:38:29 Paternal Grandmother Chronic obstructive pulmonary disease [email or web address] Not available 16:39:01 Medical History Condition Response Autoimmune disease Y Obesity Y Other Y Ear or Hearing Problems N Eczema Y Thyroid Problems Y Skin Problems Y Anemia Y Reflux/GERD Y High Cholesterol Y Obstructive Sleep Apnea Y Gynecological History Statement/Question Response Abnormal Pap N 04/08/2022 Sexually Active? Y Menses Monthly N Date of Last Pap Smear 04/08/2022 Current Control Method Implant Obstetrics History GPAL:G 0 P 0 0 0 0 Immunizations Vaccine Type Date Status Note Provider Nam e and Address Organization Details Recorded Time influenza, unspecified formulation 08/27/2023 completed Shelly early, [place] - [facility] - [place] & [place] 09/30/2023 08:21:51 Past Encounters Encounter ID Performer Location Encounter Start Date Encounter Closed Date Diagnosis/Indication Diagnosis SNOMED-CT Code Diagnosis ICD10 Code Diagnosis Note [id number] José Manuel Wilde, DNP, DISK RECORDIST, RECORDS MANAGER-C [facility] and Adv Surg [address] [place] [address] 02/09/2025 14:40:27 02/09/2025 15:14:53 History of bariatric surgical procedure 122164209 Z98.84 Advised qid intake 50% protein 6437-2678 calories/d y less than 100 carbs/dyPa tient is to have bariatric vitamin lab panel. Patient was reassured on today's visit. Dialogue content in great detail regarding the benefits of proper diet as well as regular and routine exercise. In regards to exercise, we discussed reaching target heart rate for least 20 minutes 3 times a week. We also highlighte d the importance of staying well hydrated. Proper handwashin g was also encouraged . Patient was advised to keep in close contact with their primary care provider and/or any specialty provider (s). We will contact patient with any deficienci es. Intentiona l weight loss 832000962 R63.8 History of gastrectomy 708847485 Z90.3 Advised qid intake 50% protein 2111-7037 calories/d y less than 100 carbs/dy Long discussion today of InBody results including PBF(percen t body fat) SMM (skeletal muscle mass) Visceral fat level level BMR Segmental Fat Analysis and Segmental Lean Analysis. Encouraged pt to take minimal calories as per BMR and to anticipate changes in SMM and PBF values not just total weight. Follow-up with Repeat NASRA in 3mth suggested Patient is status post bariatric surgery and at increased risk for vitamin deficienci es and malnutriti on. Bariatric vitamin panel ordered today. Patient will be contacted to correct any vitamin deficienci es. At [facility] risk of nutritional deficit 770526780 Z91.89 Hyperlipidemia 24033541 E78.5 Hypothyroidism 63703956 E03.9 Heartburn 77266992 R12 GERD-patie nt was reassured. We discussed lifestyle modificati ons in patient-di rected therapy which are designed to decrease distal esophageal acid exposure. Plan is to continue current proton pump inhibitor. Other lifestyle modificati ons include elevating the head of the bed on 15 cm of blocks or sleep on a wedge-shap ed bolster. Patient was encouraged to consume smaller meals and do not eat for 3 hours prior to lying recumbent. Ultimately patient has been advised to avoid large, high fat meals and avoid foods that may aggravate the problem. Gastroesop hageal reflux disease without esophagitis 392572268 K21.9 GERD-patie nt was reassured. We discussed lifestyle modificati ons in patient-di rected therapy which are designed to decrease distal esophageal acid exposure. Plan is to continue current to increase frequency of proton pump inhibitor. we will also add H2 karlene at bedtime.Ot her lifestyle modificati ons include elevating the head of the bed on 15 cm of blocks or sleep on a wedge-shap ed bolster. Patient was encouraged to consume smaller meals and do not eat for 3 hours prior to lying recumbent. Ultimately patient has been advised to avoid large, high fat meals and avoid foods that may aggravate the problem. Obesity 333737706 E66.9 Psoriatic arthritis 1563 15759 L40.50 Abnormal weight gain 161 635553 R63.5 Esophageal dysphagia 408 70287 R13.19 I do have a copy of her report from upper GI. I will have Dr. Aguilera and Dr. Em review this as well. Health Concerns Section Related Observation LastModified by Organization Detai ls LastModified Time None Recorded Concern Status LastModified by Organization Details LastModified Time None Recorded Payers Encounter Date Sequence Insurance Name Policy Number Policy Arguello Covered Member ID Arguello Member ID Guarantor Name 02/09/2025 1 [place] [id number] Tabatha Davila [id number] Tabatha Davila Notes Date Note Type Note Provider Name and Address Organization Details Recorded Time 02/09/2025 text/html Patient presents the office today to re-est/ follow-up status post bariatric gastric sleeve gastrectomy surgery ( 2021 ). Patient doing well. Reports q.i.d. small meal intake. Reports >70g/dy protein intake and good hydration.Patient is drinking 64 ounces of water a day.Daily Calories 1500Taking routine vitamins as advised.Heartburn /gastroesophageal reflux: yesPt Denies : abdominal pain, prandial issues Nausea, Vomiting, bowel or bladder issuesTotal Weight gain Since last office visit has been17.8 lbsPt is happy with their quality of life after Weight loss Surgery.Patient is currently taking Wegovy 0.5 mg and has not had any issues. She has had issues with rectal bleeding. She has already had upper GI, EGD and colonoscopy recently performed. EGD on January 19, 2025 revealed small sliding type hiatal hernia. She was told that her sleeved looked abnormal and that was why she wanted to come in to see us today. She does not report any issues with swallowing although sometimes her pills do get stuck in her throat.Today's InBody reveals a skeletal muscle mass = 61.5 lb,body fat mass = 112.4 lb,BMI = 36.1Percent body fat = 50.3Basal Metabolic Rate = 1459 kilo calories José Manuel Wilde, DNP, DISK RECORDIST, RECORDS MANAGER-C [address], [place], [address], [facility] - [place] - [place] & [place] 02/09/2025 15:53:19 OBGyn Episode No OBEpisode recorded.
--- OUTSIDE RECORDS SUMMARY | 2025-03-22 09:16 | XMS_ITS | Data Portability ---
Author Organization [place] - [place] [facility] & [place] [facility] ADMIN Address [address] [place] [id number] Care Team Providers Care Office Lead Name Role Phone ATIF THOMPSON Primary Care Provider [phone] Assessment No assessment recorded. Plan of Treatment Reminders Order Date Submit Date Provider Last Modified By Organization Details Last Modified Time Details Appointments OV EST 20 2024 08:20A M José Manuel Wilde, DNP, OIL CHANGE TECHNICIAN, COMPLAINT ADJUSTER-C Not available Not available Not available Lab iron + TIBC + ferritin, serum 2024 025 [facility], [address], [address], [place], [address], 02/13/2025 03:38:25 folate, serum 2024 025 [facility], [address], [address], [place], [address], 02/13/2025 03:38:29 prealbumi n, serum 2024 025 [facility], [address], [address], [place], [address], 02/13/2025 03:38:32 thiamine, QN, blood 2024 025 [facility], [address], [address], [place], [address], 02/13/2025 03:38:31 methylmal lorena, QN, serum or plasma 2024 025 [facility], [address], [address], [place], [address], 02/13/2025 03:38:32 vitamin D, 25-hydrox y, total, serum 2024 025 [facility], [address], [address], [place], [address], 02/13/2025 03:38:31 vitamin E, serum 2024 025 [facility], [address], [address], [place], [address], 02/13/2025 03:38:28 vitamin A (retinol) , serum 2024 025 [facility], [address], [address], [place], [address], 02/13/2025 03:38:30 TSH + free T4, serum 2024 025 [facility], [address], [address], [place], [address], 02/13/2025 03:38:25 CBC w/ auto diff 2024 025 [facility], [address], [address], [place], [address], 02/13/2025 03:38:26 CMP, serum or plasma 2024 025 [facility], [address], [address], [place], [address], 02/13/2025 03:38:27 HbA1c (hemoglob in A1c), blood 2024 025 [facility], [address], [address], [place], [address], 02/13/2025 03:38:29 lipid panel, serum 2024 025 [facility], [address], [address], [place], [address], 02/13/2025 03:38:28 CBC w/ auto diff 2022 023 [facility], [address], [address], [place], [address], 10/08/2023 10:36:04 CMP, serum or plasma 2022 023 [facility], [address], [address], [place], [address], 10/08/2023 10:36:05 HbA1c (hemoglob in A1c), blood 2022 023 [facility], [address], [address], [place], [address], 10/08/2023 10:36:09 iron + TIBC + ferritin, serum 2022 023 [facility], [address], [address], [place], [address], 10/08/2023 10:36:02 folate, serum 2022 023 [facility], [address], [address], [place], [address], 10/08/2023 10:36:10 vitamin D, 25-hydrox y, total, serum 2022 023 [facility], [address], [address], [place], [address], 10/08/2023 10:36:12 vitamin E, serum 2022 023 [facility], [address], [address], [place], [address], 10/08/2023 10:36:08 vitamin A (retinol) , serum 2022 023 [facility], [address], [address], [place], [address], 10/08/2023 10:36:11 TSH + free T4, serum 2022 023 [facility], [address], [address], [place], [address], 10/08/2023 10:36:03 prealbumi n, serum 2022 023 [facility], [address], [address], [place], [address], 10/08/2023 10:36:15 thiamine, QN, blood 2022 023 [facility], [address], [address], [place], [address], 10/08/2023 10:36:13 methylmal lorena, QN, serum or plasma 2022 023 [facility], [address], [address], [place], [address], 10/08/2023 10:36:14 lipid panel, serum 2022 023 [facility], [address], [address], [place], [address], 10/08/2023 10:36:07 CBC w/ auto diff 2022 023 [facility], [address], [address], [place], [address], 04/08/2023 07:07:49 CMP, serum or plasma 2022 023 [facility], [address], [address], [place], [address], 04/08/2023 07:07:50 HbA1c (hemoglob in A1c), blood 2022 023 [facility], [address], [address], [place], [address], 04/08/2023 07:07:52 iron + TIBC + ferritin, serum 2022 023 [facility], [address], [address], [place], [address], 04/08/2023 07:07:46 folate, serum 2022 023 [facility], [address], [address], [place], [address], 04/08/2023 07:07:53 vitamin D, 25-hydrox y, total, serum 2022 023 [facility], [address], [address], [place], [address], 04/08/2023 07:07:55 vitamin E, serum 2022 023 [facility], [address], [address], [place], [address], 04/08/2023 07:07:51 vitamin A (retinol) , serum 2022 023 [facility], [address], [address], [place], [address], 04/08/2023 07:07:54 TSH + free T4, serum 2022 023 [facility], [address], [address], [place], [address], 04/08/2023 07:07:48 prealbumi n, serum 2022 023 [facility], [address], [address], [place], [address], 04/08/2023 07:07:57 thiamine, QN, blood 2022 023 [facility], [address], [address], [place], [address], 04/08/2023 07:07:56 methylmal lorena, QN, serum or plasma 2022 023 [facility], [address], [address], [place], [address], 04/08/2023 07:07:57 lipid panel, serum 2022 023 [facility], [address], [address], [place], [address], 04/08/2023 07:07:51 CBC w/ auto diff 2022 023 [facility]ISTA Not available 03/27/2023 20:04:34 CMP, serum or plasma 2022 023 SHAISTA Not available 03/28/2023 01:08:41 HbA1c (hemoglob in A1c), blood 2022 023 [facility]A Not available 03/27/2023 23:49:01 lipid panel, blood 2022 023 [facility]A Not available 03/28/2023 01:08:41 iron + TIBC + ferritin, serum 2022 023 [email or web address] 17 Not available 06/25/2023 14:00:05 folate, serum 2022 023 [email or web address] 17 Not available 06/25/2023 14:00:05 mma (methylma lonic acid), serum 2022 023 [email or web address] 17 Not available 06/25/2023 14:00:06 vitamin B1 (thiamine ), blood 2022 023 SHAISTA Not available 04/01/2023 19:11:43 vitamin D, 25-hydrox y, total, serum 2022 023 [facility]ISTA Not available 03/27/2023 23:49:01 vitamin E, serum 2022 023 [facility]A Not available 04/01/2023 08:03:35 vitamin A (retinol) , serum 2022 023 [facility]A Not available 04/01/2023 08:03:36 CBC w/ auto diff 2022 023 [email or web address] Not available 01/22/2023 13:33:47 CMP, serum or plasma 2022 023 jtooson Not available 01/22/2023 13:33:48 HbA1c (hemoglob in A1c), blood 2022 023 jtooson Not available 01/22/2023 13:33:48 lipid panel, blood 2022 023 jtooson Not available 01/22/2023 13:33:48 iron + TIBC + ferritin, serum 2022 023 jtooson Not available 01/22/2023 13:33:48 folate, serum 2022 023 jtooson Not available 01/22/2023 13:33:48 mma (methylma lonic acid), serum 2022 023 jtooson Not available 01/22/2023 13:33:48 vitamin B1 (thiamine ), blood 2022 023 jtooson Not available 01/22/2023 13:33:49 vitamin D, 25-hydrox y, total, serum 2022 023 jtooson Not available 01/22/2023 13:33:49 vitamin E, serum 2022 023 jtooson Not available 01/22/2023 13:33:49 vitamin A (retinol) , serum 2022 023 jtooson Not available 01/22/2023 13:33:49 Referral None recorded. Procedures None recorded. Surgeries None recorded. Imaging None recorded. Medication Orders famotidin e 20 mg tablet 2024 025 [facility], [address] [place] [address], [address], 02/09/2025 15:14:37 omeprazol e 20 mg capsule,d elayed release 2024 025 [facility], [address] [place] [address], [place], [address], 02/09/2025 15:14:36 omeprazol e 20 mg capsule,d elayed release 2022 023 [facility], [address] [place] [address], [place], [address], 09/30/2023 08:46:37 Patient TargetsNo targets recorded. Patient InstructionsNo instructions recorded. Reason for Referral None Reported. Results Created Date Observation Date Name Description Value Unit Range Abnormal Flag Note LastModifiedBy Organization Detail LastModifiedTime 04/03/2004/04/2023 FE+TI BC+FE R iron bind.cap.(TI BC) 257 ug/dL 250-45 0 Not Available [facility] ([facility]) [address] [facility], [place], [address], 04/08/2023 07:07:46 04/03/20 23 04/04/2023 FE+TI BC+FE R UIBC 148 ug/dL 131-42 5 Not Available [facility] ([facility]) [address] [facility], [place], [address], 04/08/2023 07:07:46 04/03/20 23 04/04/2023 FE+TI BC+FE R iron 109 ug/dL 27-159 Not Available [facility] ([facility]) [address] [place], [address], 04/08/2023 07:07:46 04/03/20 23 04/04/2023 FE+TI BC+FE R iron saturation 42 % 15-55 Not Available [facility] ([facility]) [address] [place], [address], 04/08/2023 07:07:46 04/03/20 23 04/04/2023 FE+TI BC+FE R ferritin 253 NG/mL 15-150 above high normal Not Available [facility] ([facility]) [address] [place], [address], 04/08/2023 07:07:46 04/03/20 23 04/04/2023 TSH+F REE T4 TSH 1.040 uIU/m L 0.450- 4.500 Not Available [facility] ([facility]) [address] [place], [address], 04/08/2023 07:07:48 04/03/2004/04/2023 TSH+F REE T4 T4,free(dire ct) 0.94 NG/dL 0.82-1 .77 Not Available [facility] ([facility]) [address] [place], [address], 04/08/2023 07:07:48 04/03/2004/04/2023 CBC WITH DIFFE RENTI AL/PL ATELE T WBC 7.0 x10e3 /uL 3.4-10 .8 Not Available [facility] ([facility]) [address] [place], [address], 04/08/2023 07:07:49 04/03/20 23 04/04/2023 CBC WITH DIFFE RENTI AL/PL ATELE T RBC 4.46 x10e6 /uL 3.77-5 .28 Not Available [facility] ([facility]) [address] [place], [address], 04/08/2023 07:07:49 04/03/20 23 04/04/2023 CBC WITH DIFFE RENTI AL/PL ATELE T hemoglobin 14.0 g/dL 11.1-1 5.9 Not Available [facility] ([facility]) [address] [place], [address], 04/08/2023 07:07:49 04/03/20 23 04/04/2023 CBC WITH DIFFE RENTI AL/PL ATELE T hematocrit 41.7 % 34.0-4 6.6 Not Available [facility] ([facility]) [address] [place], [address], 04/08/2023 07:07:49 04/03/20 23 04/04/2023 CBC WITH DIFFE RENTI AL/PL ATELE T MCV 94 fL 79-97 Not Available [facility] ([facility]) [address] [place], [address], 04/08/2023 07:07:49 04/03/20 23 04/04/2023 CBC WITH DIFFE RENTI AL/PL ATELE T MCH 31.4 pg 26.6-3 3.0 Not Available [facility] ([facility]) [address] [place], [address], 04/08/2023 07:07:49 04/03/20 23 04/04/2023 CBC WITH DIFFE RENTI AL/PL ATELE T MCHC 33.6 g/dL 31.5-3 5.7 Not Available [facility] ([facility]) [address] [place], [address], 04/08/2023 07:07:49 04/03/20 23 04/04/2023 CBC WITH DIFFE RENTI AL/PL ATELE T RDW 12.6 % 11.7-1 5.4 Not Available [facility] ([facility]) [address] [place], [address], 04/08/2023 07:07:49 04/03/20 23 04/04/2023 CBC WITH DIFFE RENTI AL/PL ATELE T platelets 277 x10e3 /uL 150-45 0 Not Available [facility] ([facility]) [address] [facility], [place], [address], 04/08/2023 07:07:49 04/03/20 23 04/04/2023 CBC WITH DIFFE RENTI AL/PL ATELE T neutrophils 53 % not estab. Not Available [facility] ([facility]) [address] [facility], [place], [address], 04/08/2023 07:07:49 04/03/20 23 04/04/2023 CBC WITH DIFFE RENTI AL/PL ATELE T lymphs 38 % not estab. Not Available [facility] ([facility]) [address] [facility], [place], [address], 04/08/2023 07:07:49 04/03/20 23 04/04/2023 CBC WITH DIFFE RENTI AL/PL ATELE T monocytes 8 % not estab. Not Available [facility] ([facility]) [address] [facility], [place], [address], 04/08/2023 07:07:49 04/03/20 23 04/04/2023 CBC WITH DIFFE RENTI AL/PL ATELE T eos 1 % not estab. Not Available [facility] ([facility]) [address] [facility], [place], [address], 04/08/2023 07:07:49 04/03/20 23 04/04/2023 CBC WITH DIFFE RENTI AL/PL ATELE T basos 0 % not estab. Not Available [facility] ([facility]) [address] [facility], [place], [address], 04/08/2023 07:07:49 04/03/20 23 04/04/2023 CBC WITH DIFFE RENTI AL/PL ATELE T immature cells COMPLAINT ADJUSTER Not Available [facility] ([facility]) [address] [place], [address], 04/08/2023 07:07:49 04/03/20 23 04/04/2023 CBC WITH DIFFE RENTI AL/PL ATELE T neutrophils (absolute) 3.6 x10e3 /uL 1.4-7. 0 Not Available [facility] ([facility]) [address] [place], [address], 04/08/2023 07:07:49 04/03/20 23 04/04/2023 CBC WITH DIFFE RENTI AL/PL ATELE T lymphs (absolute) 2.7 x10e3 /uL 0.7-3. 1 Not Available [facility] ([facility]) [address] [place], [address], 04/08/2023 07:07:49 04/03/20 23 04/04/2023 CBC WITH DIFFE RENTI AL/PL ATELE T monocytes(ab solute) 0.6 x10e3 /uL 0.1-0. 9 Not Available [facility] ([facility]) [address] [place], [address], 04/08/2023 07:07:49 04/03/20 23 04/04/2023 CBC WITH DIFFE RENTI AL/PL ATELE T eos (absolute) 0.1 x10e3 /uL 0.0-0. 4 Not Available [facility] ([facility]) [address] [place], [address], 04/08/2023 07:07:49 04/03/20 23 04/04/2023 CBC WITH DIFFE RENTI AL/PL ATELE T baso (absolute) 0.0 x10e3 /uL 0.0-0. 2 Not Available [facility] ([facility]) [address] [place], [address], 04/08/2023 07:07:49 04/03/20 23 04/04/2023 CBC WITH DIFFE RENTI AL/PL ATELE T immature granulocytes 0 % not estab. Not Available [facility] ([facility]) [address] [facility], [place], [address], 04/08/2023 07:07:49 04/03/20 23 04/04/2023 CBC WITH DIFFE RENTI AL/PL ATELE T immature grans (abs) 0.0 x10e3 /uL 0.0-0. 1 Not Available [facility] ([facility]) [address] [facility], [place], [address], 04/08/2023 07:07:49 04/03/20 23 04/04/2023 CBC WITH DIFFE RENTI AL/PL ATELE T NRBC COMPLAINT ADJUSTER Not Available [facility] ([facility]) [address] [facility], [place], [address], 04/08/2023 07:07:49 04/03/20 23 04/04/2023 CBC WITH DIFFE RENTI AL/PL ATELE T hematology comments: COMPLAINT ADJUSTER Not Available [facility] ([facility]) [address] [place], [address], 04/08/2023 07:07:49 04/03/20 23 04/04/2023 COMP. METAB OLIC PANEL (14) glucose 83 mg/dL 70-99 Not Available [facility] ([facility]) [address] [place], [address], 04/08/2023 07:07:50 04/03/20 23 04/04/2023 COMP. METAB OLIC PANEL (14) BUN 21 mg/dL 6-24 Not Available [facility] ([facility]) [address] [place], [address], 04/08/2023 07:07:50 04/03/20 23 04/04/2023 COMP. METAB OLIC PANEL (14) creatinine 0.75 mg/dL 0.57-1 .00 Not Available [facility] ([facility]) [address] [facility] [place], [address], 04/08/2023 07:07:50 04/03/20 23 04/04/2023 COMP. METAB OLIC PANEL (14) eGFR 99 mL/mi n/1.7 3 >59 Not Available [facility] ([facility]) [address] [facility] [place], [address], 04/08/2023 07:07:50 04/03/20 23 04/04/2023 COMP. METAB OLIC PANEL (14) BUN/creatini ne ratio 28 9-23 above high normal Not Available [facility] ([facility]) [address] [place], [address], 04/08/2023 07:07:50 04/03/20 23 04/04/2023 COMP. METAB OLIC PANEL (14) sodium 139 mmol/ L 134-14 4 Not Available [facility] ([facility]) [address] [place], [address], 04/08/2023 07:07:50 04/03/20 23 04/04/2023 COMP. METAB OLIC PANEL (14) potassium 4.4 mmol/ L 3.5-5. 2 Not Available [facility] ([facility]) [address] [place], [address], 04/08/2023 07:07:50 04/03/20 23 04/04/2023 COMP. METAB OLIC PANEL (14) chloride 103 mmol/ L 96-106 Not Available [facility] ([facility]) [address] [place], [address], 04/08/2023 07:07:50 04/03/20 23 04/04/2023 COMP. METAB OLIC PANEL (14) carbon dioxide, total 22 mmol/ L 20-29 Not Available [facility] ([facility]) [address] [place], [address], 04/08/2023 07:07:50 04/03/20 23 04/04/2023 COMP. METAB OLIC PANEL (14) calcium 9.6 mg/dL 8.7-10 .2 Not Available [facility] ([facility]) [address], [place], [address], 04/08/2023 07:07:50 04/03/20 23 04/04/2023 COMP. METAB OLIC PANEL (14) protein, total 6.6 g/dL 6.0-8. 5 Not Available [facility] ([facility]) [address] [place], [address], 04/08/2023 07:07:50 04/03/20 23 04/04/2023 COMP. METAB OLIC PANEL (14) albumin 4.2 g/dL 3.8-4. 8 Not Available [facility] ([facility]) [address] [facility], [place], [address], 04/08/2023 07:07:50 04/03/20 23 04/04/2023 COMP. METAB OLIC PANEL (14) globulin, total 2.4 g/dL 1.5-4. 5 Not Available [facility] ([facility]) [address] [facility] [place], [address], 04/08/2023 07:07:50 04/03/20 23 04/04/2023 COMP. METAB OLIC PANEL (14) A/G ratio 1.8 1.2-2. 2 Not Available [facility] ([facility]) [address] [facility] [place], [address], 04/08/2023 07:07:50 04/03/20 23 04/04/2023 COMP. METAB OLIC PANEL (14) bilirubin, total 0.8 mg/dL 0.0-1. 2 Not Available [facility] ([place] [facility]) [address] [facility] [place], [address], 04/08/2023 07:07:50 04/03/20 23 04/04/2023 COMP. METAB OLIC PANEL (14) alkaline phosphatase 85 IU/L 44-121 Not Available [facility]) [address] [place], [address], 04/08/2023 07:07:50 04/03/20 23 04/04/2023 COMP. METAB OLIC PANEL (14) AST (SGOT) 15 IU/L 0-40 Not Available [facility] ([facility]) [address] [place], [address], 04/08/2023 07:07:50 04/03/20 23 04/04/2023 COMP. METAB OLIC PANEL (14) ALT (SGPT) 13 IU/L 0-32 Not Available [facility] ([facility]) [address] [place], [address], 04/08/2023 07:07:50 04/03/20 23 04/04/2023 LIPID PANEL cholesterol, total 211 mg/dL 100-19 9 above high normal Not Available [facility] ([facility]) [address] [place], [address], 04/08/2023 07:07:51 04/03/20 23 04/04/2023 LIPID PANEL triglyceride s 152 mg/dL 0-149 above high normal Not Available [facility] ([facility]) [address] [place], [address], 04/08/2023 07:07:51 04/03/20 23 04/04/2023 LIPID PANEL HDL cholesterol 47 mg/dL >39 Not Available [facility]) [address] [place], [address], 04/08/2023 07:07:51 04/03/20 23 04/04/2023 LIPID PANEL VLDL cholesterol teresa 27 mg/dL 5-40 Not Available [facility] [address] [facility], [place], [address], 04/08/2023 07:07:51 04/03/20 23 04/04/2023 LIPID PANEL LDL chol calc ([facility]) 137 mg/dL 0-99 above high normal Not Available [facility] ([facility]) [address] [facility], [place], [address], 04/08/2023 07:07:51 04/03/20 23 04/04/2023 LIPID PANEL comment: COMPLAINT ADJUSTER Not Available [facility] ([facility]) [address] [facility], [place], [address], 04/08/2023 07:07:51 04/03/20 23 04/08/2023 VITAM IN E vitamin E(alpha tocopherol) 10.4 mg/L 7.0-25 .1 Not Available [facility] ([facility]) [address] [facility], [place], [address], 04/08/2023 07:07:51 04/03/20 23 04/08/2023 VITAM IN E vitamin E(gamma tocopherol) 1.6 mg/L 0.5-5. 5 Refer ence inter vals for alpha and gamma -toco phero l deter mined from [facility] tion Exami natio n Surve y, 2004- 2005. Indiv idual s with alpha -toco phero l level s less than 5.0 mg/L are consi dered vitam in E defic ient. Not Available [facility] ([facility]) [address] [facility], [place], [address], 04/08/2023 07:07:51 04/03/20 23 04/04/2023 HEMOG LOBIN A1C hemoglobin A1C 5.7 % 4.8-5. 6 above high normal Predi abete s: 5.7 - 6.4 Diabe laura: >6.4 Glyce gildardo contr ol for adult s with diabe laura: <7.0 Not Available [facility] ([facility]) [address] [facility], [place], [address], 04/08/2023 07:07:52 04/03/2004/04/2023 FOLAT E (FOLI C ACID) , SERUM folate (folic acid), serum 9.3 NG/mL >3.0 A serum folat e arie ntrat ion of less than 3.1 ng/mL is consi dered to repre sent clini teresa defic iency . Not Available [facility] ([facility]) [address] [facility], [place], [address], 04/08/2023 07:07:53 04/03/2004/08/2023 VITAM IN A, SERUM vitamin A 45.1 ug/dL 20.1-6 2.0 Refer ence inter vals for vitam in A deter mined from [facility] inter nal studi es. Indiv idual s with vitam in A less than 20 ug/dL are consi dered vitam in A defic ient and those with serum arie ntrat ions less than 10 ug/dL are consi dered sever pastor defic ient. This test was devel oped and its perfo rmanc e daniel cteri stics deter mined by [facility]. It has not been clear ed or appro silvana by the Food and Drug Admin istra tion. Not Available [facility] ([facility]) [address] [facility], [place], [address], 04/08/2023 07:07:54 04/03/20 23 04/04/2023 VITAM IN D, 25-HY DROXY vitamin D, 25-hydroxy 33.4 NG/mL 30.0-1 00.0 Vitam in D defic iency has been defin ed by the Insti tute of Medic ine and an Endoc rine Socie ty pract ice guide line as a level of serum 25-OH vitam in D less than 20 ng/mL (1,2) . The Endoc rine Socie ty went on to furth er defin e vitam in D insuf ficie ncy as a level betwe en 21 and 29 ng/mL (2). 1. IOM (Inst itute of Medic ine). 2010. Dieta ry refer ence john es for calci um and D. Nicko oviedo [place]: The [facility] . 2. Dolly estrada MF, Binkl ey [place], Bisch off-F errar i MERCER, et al. Evalu ation , treat ment, and preve ntion of vitam in D defic iency : an Endoc rine Socie ty clini teresa pract ice guide line. JCEM. 2010; 96(7) :1911 -30. Not Available [facility] ([facility]) [address] [place], [address], 04/08/2023 07:07:55 04/03/20 23 04/05/2023 VITAM IN B1 (THIA MINE) , BLOOD vit. B1, whole blood 119.1 nmol/ L 66.5-2 00.0 Not Available [facility] ([facility]) [address] [place], [address], 04/08/2023 07:07:56 04/03/20 23 04/07/2023 METHY LMALO TATE ACID, SERUM methylmaloni c acid, serum 93 nmol/ L 0-378 Not Available [facility] ([facility]) [address] [place], [address], 04/08/2023 07:07:57 04/03/20 23 04/04/2023 PREAL BUMIN prealbumin 24 mg/dL 12-34 Not Available [facility] ([facility]) [address] [place], [address], 04/08/2023 07:07:57 09/30/20 23 10/01/2023 FE+TI BC+FE R iron bind.cap.(TI BC) 271 ug/dL 250-45 0 Not Available [facility] ([facility]) [address] [place], [address], 10/08/2023 10:36:02 09/30/20 23 10/01/2023 FE+TI BC+FE R UIBC 204 ug/dL 131-42 5 Not Available [facility] ([facility]) [address] [place], [address], 10/08/2023 10:36:02 09/30/20 23 10/01/2023 FE+TI BC+FE R iron 67 ug/dL 27-159 Not Available [facility] ([facility]) [address] [facility], [place], [address], 10/08/2023 10:36:02 09/30/20 23 10/01/2023 FE+TI BC+FE R iron saturation 25 % 15-55 Not Available [facility] ([facility]) [address] [place], [address], 10/08/2023 10:36:02 09/30/20 23 10/01/2023 FE+TI BC+FE R ferritin 195 NG/mL 15-150 above high normal Not Available [facility] ([facility]) [address] [place], [address], 10/08/2023 10:36:02 09/30/20 23 10/01/2023 TSH+F REE T4 TSH 1.680 uIU/m L 0.450- 4.500 Not Available [facility] ([facility]) [address] [place], [address], 10/08/2023 10:36:03 09/30/20 23 10/01/2023 TSH+F REE T4 T4,free(dire ct) 0.98 NG/dL 0.82-1 .77 Not Available [facility] ([facility]) [address] [place], [address], 10/08/2023 10:36:03 09/30/20 23 10/01/2023 CBC WITH DIFFE RENTI AL/PL ATELE T WBC 7.1 x10e3 /uL 3.4-10 .8 Not Available [facility] ([facility]) [address] [facility], [place], [address], 10/08/2023 10:36:04 09/30/20 23 10/01/2023 CBC WITH DIFFE RENTI AL/PL ATELE T RBC 4.48 x10e6 /uL 3.77-5 .28 Not Available [facility] ([facility]) [address] [facility], [place], [address], 10/08/2023 10:36:04 09/30/20 23 10/01/2023 CBC WITH DIFFE RENTI AL/PL ATELE T hemoglobin 14.1 g/dL 11.1-1 5.9 Not Available [facility] ([facility]) [address] [facility], [place], [address], 10/08/2023 10:36:04 09/30/20 23 10/01/2023 CBC WITH DIFFE RENTI AL/PL ATELE T hematocrit 41.5 % 34.0-4 6.6 Not Available [facility] ([facility]) [address] [facility], [place], [address], 10/08/2023 10:36:04 09/30/20 23 10/01/2023 CBC WITH DIFFE RENTI AL/PL ATELE T MCV 93 fL 79-97 Not Available [facility] ([facility]) [address] [place], [address], 10/08/2023 10:36:04 09/30/20 23 10/01/2023 CBC WITH DIFFE RENTI AL/PL ATELE T MCH 31.5 pg 26.6-3 3.0 Not Available [facility] ([facility]) [address] [facility], [place], [address], 10/08/2023 10:36:04 09/30/20 23 10/01/2023 CBC WITH DIFFE RENTI AL/PL ATELE T MCHC 34.0 g/dL 31.5-3 5.7 Not Available [facility] ([facility]) [address] [facility], [place], [address], 10/08/2023 10:36:04 09/30/20 23 10/01/2023 CBC WITH DIFFE RENTI AL/PL ATELE T RDW 12.0 % 11.7-1 5.4 Not Available [facility] ([facility]) [address] [facility], [place], [address], 10/08/2023 10:36:04 09/30/20 23 10/01/2023 CBC WITH DIFFE RENTI AL/PL ATELE T platelets 320 x10e3 /uL 150-45 0 Not Available [facility] ([facility]) [address] [facility], [place], [address], 10/08/2023 10:36:04 09/30/20 23 10/01/2023 CBC WITH DIFFE RENTI AL/PL ATELE T neutrophils 50 % not estab. Not Available [facility] ([facility]) [address] [facility], [place], [address], 10/08/2023 10:36:04 09/30/20 23 10/01/2023 CBC WITH DIFFE RENTI AL/PL ATELE T lymphs 37 % not estab. Not Available [facility] ([facility]) [address] [facility], [place], [address], 10/08/2023 10:36:04 09/30/20 23 10/01/2023 CBC WITH DIFFE RENTI AL/PL ATELE T monocytes 10 % not estab. Not Available [facility] ([facility]) [address] [facility], [place], [address], 10/08/2023 10:36:04 09/30/20 23 10/01/2023 CBC WITH DIFFE RENTI AL/PL ATELE T eos 2 % not estab. Not Available [facility] ([facility]) [address] [facility], [place], [address], 10/08/2023 10:36:04 09/30/20 23 10/01/2023 CBC WITH DIFFE RENTI AL/PL ATELE T basos 1 % not estab. Not Available [facility] ([facility]) [address] [facility], [place], [address], 10/08/2023 10:36:04 09/30/20 23 10/01/2023 CBC WITH DIFFE RENTI AL/PL ATELE T immature cells COMPLAINT ADJUSTER Not Available [facility] ([facility]) [address] [place], [address], 10/08/2023 10:36:04 09/30/20 23 10/01/2023 CBC WITH DIFFE RENTI AL/PL ATELE T neutrophils (absolute) 3.6 x10e3 /uL 1.4-7. 0 Not Available [facility] ([facility]) [address] [place], [address], 10/08/2023 10:36:04 09/30/20 23 10/01/2023 CBC WITH DIFFE RENTI AL/PL ATELE T lymphs (absolute) 2.6 x10e3 /uL 0.7-3. 1 Not Available [facility] ([facility]) [address] [place], [address], 10/08/2023 10:36:04 09/30/20 23 10/01/2023 CBC WITH DIFFE RENTI AL/PL ATELE T monocytes(ab solute) 0.7 x10e3 /uL 0.1-0. 9 Not Available [facility] ([facility]) [address] [place], [address], 10/08/2023 10:36:04 09/30/20 23 10/01/2023 CBC WITH DIFFE RENTI AL/PL ATELE T eos (absolute) 0.1 x10e3 /uL 0.0-0. 4 Not Available [facility] ([facility]) [address] [place], [address], 10/08/2023 10:36:04 09/30/20 23 10/01/2023 CBC WITH DIFFE RENTI AL/PL ATELE T baso (absolute) 0.0 x10e3 /uL 0.0-0. 2 Not Available [facility] ([facility]) [address], [place], [address], 10/08/2023 10:36:04 09/30/20 23 10/01/2023 CBC WITH DIFFE RENTI AL/PL ATELE T immature granulocytes 0 % not estab. Not Available [facility] ([facility]) [address] [facility], [place], [address], 10/08/2023 10:36:04 09/30/20 23 10/01/2023 CBC WITH DIFFE RENTI AL/PL ATELE T immature grans (abs) 0.0 x10e3 /uL 0.0-0. 1 Not Available [facility] ([facility]) [address] [facility], [place], [address], 10/08/2023 10:36:04 09/30/20 23 10/01/2023 CBC WITH DIFFE RENTI AL/PL ATELE T NRBC COMPLAINT ADJUSTER Not Available [facility] ([facility]) [address] [facility], [place], [address], 10/08/2023 10:36:04 09/30/20 23 10/01/2023 CBC WITH DIFFE RENTI AL/PL ATELE T hematology comments: COMPLAINT ADJUSTER Not Available [facility] ([facility]) [address] [facility], [place], [address], 10/08/2023 10:36:04 09/30/20 23 10/01/2023 COMP. METAB OLIC PANEL (14) glucose 92 mg/dL 70-99 Not Available [facility] ([facility]) [address] [facility], [place], [address], 10/08/2023 10:36:05 09/30/20 23 10/01/2023 COMP. METAB OLIC PANEL (14) BUN 19 mg/dL 6-24 Not Available [facility] ([facility]) [address] [facility], [place], [address], 10/08/2023 10:36:05 09/30/20 23 10/01/2023 COMP. METAB OLIC PANEL (14) creatinine 0.80 mg/dL 0.57-1 .00 Not Available [facility] ([facility]) [address] [facility], [place], [address], 10/08/2023 10:36:05 09/30/20 23 10/01/2023 COMP. METAB OLIC PANEL (14) eGFR 91 mL/mi n/1.7 3 >59 Not Available [facility] ([facility]) [address] [facility], [place], [address], 10/08/2023 10:36:05 09/30/20 23 10/01/2023 COMP. METAB OLIC PANEL (14) BUN/creatini ne ratio 24 9-23 above high normal Not Available [facility] ([facility]) [address] [facility], [place], [address], 10/08/2023 10:36:05 09/30/20 23 10/01/2023 COMP. METAB OLIC PANEL (14) sodium 140 mmol/ L 134-14 4 Not Available [facility] ([facility]) [address] [place], [address], 10/08/2023 10:36:05 09/30/20 23 10/01/2023 COMP. METAB OLIC PANEL (14) potassium 4.4 mmol/ L 3.5-5. 2 Not Available [facility] ([facility]) [address] [facility], [place], [address], 10/08/2023 10:36:05 09/30/20 23 10/01/2023 COMP. METAB OLIC PANEL (14) chloride 106 mmol/ L 96-106 Not Available [facility] ([facility]) [address] [facility] [place], [address], 10/08/2023 10:36:05 09/30/20 23 10/01/2023 COMP. METAB OLIC PANEL (14) carbon dioxide, total 24 mmol/ L 20-29 Not Available [facility] ([facility]) [address] [facility], [place], [address], 10/08/2023 10:36:05 09/30/20 23 10/01/2023 COMP. METAB OLIC PANEL (14) calcium 9.4 mg/dL 8.7-10 .2 Not Available [facility] ([facility]) [address] [facility], [place], [address], 10/08/2023 10:36:05 09/30/20 23 10/01/2023 COMP. METAB OLIC PANEL (14) protein, total 6.9 g/dL 6.0-8. 5 Not Available [facility] ([facility]) [address] [facility] [place], [address], 10/08/2023 10:36:05 09/30/20 23 10/01/2023 COMP. METAB OLIC PANEL (14) albumin 4.3 g/dL 3.9-4. 9 Not Available [facility] ([facility]) [address] [facility] [place], [address], 10/08/2023 10:36:05 09/30/20 23 10/01/2023 COMP. METAB OLIC PANEL (14) globulin, total 2.6 g/dL 1.5-4. 5 Not Available [facility] ([facility]) [address] [facility] [place], [address], 10/08/2023 10:36:05 09/30/20 23 10/01/2023 COMP. METAB OLIC PANEL (14) A/G ratio 1.7 1.2-2. 2 Not Available [facility] ([facility]) [address], [place], [address], 10/08/2023 10:36:05 09/30/20 23 10/01/2023 COMP. METAB OLIC PANEL (14) bilirubin, total 0.4 mg/dL 0.0-1. 2 Not Available [facility] ([facility]) [address] [place], [address], 10/08/2023 10:36:05 09/30/20 23 10/01/2023 COMP. METAB OLIC PANEL (14) alkaline phosphatase 88 IU/L 44-121 Not Available [facility] ([facility]) [address] [place], [address], 10/08/2023 10:36:05 09/30/20 23 10/01/2023 COMP. METAB OLIC PANEL (14) AST (SGOT) 10 IU/L 0-40 Not Available [facility] ([facility]) [address] [facility], [place], [address], 10/08/2023 10:36:05 09/30/20 23 10/01/2023 COMP. METAB OLIC PANEL (14) ALT (SGPT) 11 IU/L 0-32 Not Available [facility] ([facility]) [address] [facility], [place], [address], 10/08/2023 10:36:05 09/30/20 23 10/01/2023 LIPID PANEL cholesterol, total 205 mg/dL 100-19 9 above high normal Not Available [facility] ([facility]) [address] [facility] [place], [address], 10/08/2023 10:36:07 09/30/20 23 10/01/2023 LIPID PANEL triglyceride s 69 mg/dL 0-149 Not Available [facility] ([facility]) [address] [facility], [place], [address], 10/08/2023 10:36:07 09/30/20 23 10/01/2023 LIPID PANEL HDL cholesterol 53 mg/dL >39 Not Available [facility] ([facility]) [address] [place], [address], 10/08/2023 10:36:07 09/30/20 23 10/01/2023 LIPID PANEL VLDL cholesterol teresa 12 mg/dL 5-40 Not Available [facility] ([facility]) [address] [place], [address], 10/08/2023 10:36:07 09/30/20 23 10/01/2023 LIPID PANEL LDL chol calc ([facility]) 140 mg/dL 0-99 above high normal Not Available [facility] ([facility]) [address] [facility], [place], [address], 10/08/2023 10:36:07 09/30/20 23 10/01/2023 LIPID PANEL comment: COMPLAINT ADJUSTER Not Available [facility] ([facility]) [address] [facility], [place], [address], 10/08/2023 10:36:07 09/30/20 23 10/03/2023 VITAM IN E vitamin E(alpha tocopherol) 9.9 mg/L 7.0-25 .1 Not Available [facility] ([facility]) [address] [place], [address], 10/08/2023 10:36:08 09/30/20 23 10/03/2023 VITAM IN E vitamin E(gamma tocopherol) 1.8 mg/L 0.5-5. 5 Refer ence inter vals for alpha and gamma -toco phero l deter mined from [facility]ami natio n Surve y, 2004- 2005. Indiv idual s with alpha -toco phero l level s less than 5.0 mg/L are consi dered vitam in E defic ient. Not Available [facility] ([facility]) [address] [place], [address], 10/08/2023 10:36:08 09/30/20 23 10/01/2023 HEMOG LOBIN A1C hemoglobin A1C 5.8 % 4.8-5. 6 above high normal Predi abete s: 5.7 - 6.4 Diabe laura: >6.4 Glyce gildardo contr ol for adult s with diabe laura: <7.0 Not Available [facility] ([facility]) [address] [facility], [place], [address], 10/08/2023 10:36:09 09/30/20 23 10/01/2023 FOLAT E (FOLI C ACID) , SERUM folate (folic acid), serum 4.8 NG/mL >3.0 A serum folat e arie ntrat ion of less than 3.1 ng/mL is consi dered to repre sent clini teresa defic iency . Not Available [facility] ([facility]) [address] [facility], [place], [address], 10/08/2023 10:36:10 09/30/20 23 10/03/2023 VITAM IN A, SERUM vitamin A 45.0 ug/dL 20.1-6 2.0 Refer ence inter vals for vitam in A deter mined from [facility] inter nal studi es. Indiv idual s with vitam in A less than 20 ug/dL are consi dered vitam in A defic ient and those with serum arie ntrat ions less than 10 ug/dL are consi dered sever pastor defic ient. This test was devel oped and its perfo rmanc e daniel cteri stics deter mined by [facility]. It has not been clear ed or appro silvana by the Food and Drug Admin istra tion. Not Available [facility] ([facility]) [address] [facility], [place], [address], 10/08/2023 10:36:11 09/30/20 23 10/01/2023 VITAM IN D, 25-HY DROXY vitamin D, 25-hydroxy 25.1 NG/mL 30.0-1 00.0 below low normal Vitam in D defic iency has been defin ed by the Insti tute of Medic ine and an Endoc rine Socie ty pract ice guide line as a level of serum 25-OH vitam in D less than 20 ng/mL (1,2) . The Endoc rine Socie ty went on to furth er defin e vitam in D insuf ficie ncy as a level betwe en 21 and 29 ng/mL (2). 1. IOM (Inst itute of Medic ine). 2010. Dieta ry refer ence intak es for calci um and D. Nicko oviedo [place]: The [facility] . 2. Dolly estrada MF, Tono hernandez [place], Emily off-F errar i MERCER, et al. Evalu ation , treat ment, and preve ntion of vitam in D defic iency : an Endoc rine Socie ty clini teresa pract ice guide line. JCEM. 2010; 96(7) :1911 -30. Not Available [facility] ([facility]) [address] [place], [address], 10/08/2023 10:36:12 09/30/20 23 10/04/2023 VITAM IN B1 (THIA MINE) , BLOOD vit. B1, whole blood 114.1 nmol/ L 66.5-2 00.0 Not Available [facility] ([facility]) [address] [place], [address], 10/08/2023 10:36:13 09/30/20 23 10/08/2023 METHY LMALO TATE ACID, SERUM methylmaloni c acid, serum 90 nmol/ L 0-378 Not Available [facility] ([facility]) [address] [place], [address], 10/08/2023 10:36:14 09/30/20 23 10/01/2023 PREAL BUMIN prealbumin 23 mg/dL 12-34 Not Available [facility] ([facility]) [address] [place], [address], 10/08/2023 10:36:15 02/10/2002/10/2025 FE+TI BC+FE R iron bind.cap.(TI BC) 285 ug/dL 250-45 0 normal Not Available [facility] ([facility]) [address] [place], [address], 02/13/2025 03:38:25 02/10/20 25 02/10/2025 FE+TI BC+FE R UIBC 229 ug/dL 131-42 5 normal Not Available [facility] ([facility]) [address] [place], [address], 02/13/2025 03:38:25 02/10/20 25 02/10/2025 FE+TI BC+FE R iron 56 ug/dL 27-159 normal Not Available [facility] ([facility]) [address] [place], [address], 02/13/2025 03:38:25 02/10/2002/10/2025 FE+TI BC+FE R iron saturation 20 % 15-55 normal Not Available [facility] ([facility]) [address] [place], [address], 02/13/2025 03:38:25 02/10/20 25 02/10/2025 FE+TI BC+FE R ferritin 204 NG/mL 15-150 above high normal Not Available [facility] ([facility]) [address] [place], [address], 02/13/2025 03:38:25 02/10/2002/10/2025 TSH+F REE T4 TSH 0.091 uIU/m L 0.450- 4.500 below low normal Not Available [facility] ([facility]) [address] [place], [address], 02/13/2025 03:38:25 02/10/20 25 02/10/2025 TSH+F REE T4 T4,free(dire ct) 1.70 NG/dL 0.82-1 .77 normal Not Available [facility] ([facility]) [address] [place], [address], 02/13/2025 03:38:25 02/10/20 25 02/10/2025 CBC WITH DIFFE RENTI AL/PL ATELE T WBC 7.9 x10e3 /uL 3.4-10 .8 normal Not Available [facility] ([facility]) [address] [place], [address], 02/13/2025 03:38:26 02/10/20 25 02/10/2025 CBC WITH DIFFE RENTI AL/PL ATELE T RBC 4.35 x10e6 /uL 3.77-5 .28 normal Not Available [facility] ([facility]) [address] [place], [address], 02/13/2025 03:38:26 02/10/20 25 02/10/2025 CBC WITH DIFFE RENTI AL/PL ATELE T hemoglobin 13.6 g/dL 11.1-1 5.9 normal Not Available [facility] ([facility]) [address] [place], [address], 02/13/2025 03:38:26 02/10/20 25 02/10/2025 CBC WITH DIFFE RENTI AL/PL ATELE T hematocrit 41.1 % 34.0-4 6.6 normal Not Available [facility] ([facility]) [address] [place], [address], 02/13/2025 03:38:26 02/10/20 25 02/10/2025 CBC WITH DIFFE RENTI AL/PL ATELE T MCV 95 fL 79-97 normal Not Available [facility] ([facility]) [address] [place], [address], 02/13/2025 03:38:26 02/10/20 25 02/10/2025 CBC WITH DIFFE RENTI AL/PL ATELE T MCH 31.3 pg 26.6-3 3.0 normal Not Available [facility] ([facility]) [address] [facility], [place], [address], 02/13/2025 03:38:26 02/10/20 25 02/10/2025 CBC WITH DIFFE RENTI AL/PL ATELE T MCHC 33.1 g/dL 31.5-3 5.7 normal Not Available [facility] ([facility]) [address] [facility], [place], [address], 02/13/2025 03:38:26 02/10/20 25 02/10/2025 CBC WITH DIFFE RENTI AL/PL ATELE T RDW 11.8 % 11.7-1 5.4 Not Available [facility] ([facility]) [address] [facility], [place], [address], 02/13/2025 03:38:26 02/10/20 25 02/10/2025 CBC WITH DIFFE RENTI AL/PL ATELE T platelets 284 x10e3 /uL 150-45 0 normal Not Available [facility] ([facility]) [address] [facility], [place], [address], 02/13/2025 03:38:26 02/10/20 25 02/10/2025 CBC WITH DIFFE RENTI AL/PL ATELE T neutrophils 63 % not estab. normal Not Available [facility] ([facility]) [address] [facility], [place], [address], 02/13/2025 03:38:26 02/10/20 25 02/10/2025 CBC WITH DIFFE RENTI AL/PL ATELE T lymphs 26 % not estab. normal Not Available [facility] ([facility]) [address] [facility], [place], [address], 02/13/2025 03:38:26 02/10/20 25 02/10/2025 CBC WITH DIFFE RENTI AL/PL ATELE T monocytes 9 % not estab. normal Not Available [facility] ([facility]) [address] [place], [address], 02/13/2025 03:38:26 02/10/20 25 02/10/2025 CBC WITH DIFFE RENTI AL/PL ATELE T eos 1 % not estab. normal Not Available [facility] ([facility]) [address] [facility], [place], [address], 02/13/2025 03:38:26 02/10/20 25 02/10/2025 CBC WITH DIFFE RENTI AL/PL ATELE T basos 0 % not estab. normal Not Available [facility] ([facility]) [address] [facility], [place], [address], 02/13/2025 03:38:26 02/10/20 25 02/10/2025 CBC WITH DIFFE RENTI AL/PL ATELE T immature cells COMPLAINT ADJUSTER Not Available [facility] ([facility]) [address] [place], [address], 02/13/2025 03:38:26 02/10/20 25 02/10/2025 CBC WITH DIFFE RENTI AL/PL ATELE T neutrophils (absolute) 5.0 x10e3 /uL 1.4-7. 0 normal Not Available [facility] ([facility]) [address] [place], [address], 02/13/2025 03:38:26 02/10/20 25 02/10/2025 CBC WITH DIFFE RENTI AL/PL ATELE T lymphs (absolute) 2.0 x10e3 /uL 0.7-3. 1 normal Not Available [facility] ([facility]) [address] [place], [address], 02/13/2025 03:38:26 02/10/20 25 02/10/2025 CBC WITH DIFFE RENTI AL/PL ATELE T monocytes(ab solute) 0.7 x10e3 /uL 0.1-0. 9 normal Not Available [facility] ([facility]) [address] [facility], [place], [address], 02/13/2025 03:38:26 02/10/20 25 02/10/2025 CBC WITH DIFFE RENTI AL/PL ATELE T eos (absolute) 0.1 x10e3 /uL 0.0-0. 4 normal Not Available [facility] ([facility]) [address] [facility], [place], [address], 02/13/2025 03:38:26 02/10/20 25 02/10/2025 CBC WITH DIFFE RENTI AL/PL ATELE T baso (absolute) 0.0 x10e3 /uL 0.0-0. 2 normal Not Available [facility] ([facility]) [address] [facility], [place], [address], 02/13/2025 03:38:26 02/10/20 25 02/10/2025 CBC WITH DIFFE RENTI AL/PL ATELE T immature granulocytes 1 % not estab. Not Available [facility] ([facility]) [address] [place], [address], 02/13/2025 03:38:26 02/10/20 25 02/10/2025 CBC WITH DIFFE RENTI AL/PL ATELE T immature grans (abs) 0.0 x10e3 /uL 0.0-0. 1 Not Available [facility] ([facility]) [address] [place], [address], 02/13/2025 03:38:26 02/10/20 25 02/10/2025 CBC WITH DIFFE RENTI AL/PL ATELE T NRBC COMPLAINT ADJUSTER Not Available [facility] ([facility]) [address] [facility], [place], [address], 02/13/2025 03:38:26 02/10/20 25 02/10/2025 CBC WITH DIFFE RENTI AL/PL JAIME Pemberton hematology comments: COMPLAINT ADJUSTER Not Available [facility] ([facility]) [address] [facility] [place], [address], 02/13/2025 03:38:26 02/10/20 25 02/10/2025 COMP. METAB OLIC PANEL (14) glucose 91 mg/dL 70-99 normal Not Available [facility] ([facility]) [address] [facility] [place], [address], 02/13/2025 03:38:27 02/10/20 25 02/10/2025 COMP. METAB OLIC PANEL (14) BUN 16 mg/dL 6-24 normal Not Available [facility] ([facility]) [address] [facility] [place], [address], 02/13/2025 03:38:27 02/10/20 25 02/10/2025 COMP. METAB OLIC PANEL (14) creatinine 0.77 mg/dL 0.57-1 .00 normal Not Available [facility] ([facility]) [address] [facility] [place], [address], 02/13/2025 03:38:27 02/10/20 25 02/10/2025 COMP. METAB OLIC PANEL (14) eGFR 95 mL/mi n/1.7 3 >59 normal Not Available [facility] ([facility]) [address] [place], [address], 02/13/2025 03:38:27 02/10/20 25 02/10/2025 COMP. METAB OLIC PANEL (14) BUN/creatini ne ratio 21 9-23 normal Not Available [facility] ([facility]) [address] [place], [address], 02/13/2025 03:38:27 02/10/20 25 02/10/2025 COMP. METAB OLIC PANEL (14) sodium 140 mmol/ L 134-14 4 normal Not Available [facility] ([facility]) [address] [place], [address], 02/13/2025 03:38:27 02/10/20 25 02/10/2025 COMP. METAB OLIC PANEL (14) potassium 4.6 mmol/ L 3.5-5. 2 normal Not Available [facility] ([facility]) [address] [place], [address], 02/13/2025 03:38:27 02/10/20 25 02/10/2025 COMP. METAB OLIC PANEL (14) chloride 104 mmol/ L 96-106 normal Not Available [facility] ([facility]) [address] [place], [address], 02/13/2025 03:38:27 02/10/20 25 02/10/2025 COMP. METAB OLIC PANEL (14) carbon dioxide, total 22 mmol/ L 20-29 normal Not Available [facility] ([facility]) [address] [place], [address], 02/13/2025 03:38:27 02/10/20 25 02/10/2025 COMP. METAB OLIC PANEL (14) calcium 9.3 mg/dL 8.7-10 .2 normal Not Available [facility] ([facility]) [address] [place], [address], 02/13/2025 03:38:27 02/10/20 25 02/10/2025 COMP. METAB OLIC PANEL (14) protein, total 6.9 g/dL 6.0-8. 5 normal Not Available [facility] ([facility]) [address] [place], [address], 02/13/2025 03:38:27 02/10/20 25 02/10/2025 COMP. METAB OLIC PANEL (14) albumin 4.4 g/dL 3.9-4. 9 normal Not Available [facility] ([facility]) [address] [place], [address], 02/13/2025 03:38:27 02/10/20 25 02/10/2025 COMP. METAB OLIC PANEL (14) globulin, total 2.5 g/dL 1.5-4. 5 Not Available [facility] ([facility]) [address] [facility], [place], [address], 02/13/2025 03:38:27 02/10/20 25 02/10/2025 COMP. METAB OLIC PANEL (14) bilirubin, total 0.4 mg/dL 0.0-1. 2 normal Not Available [facility] ([facility]) [address] [facility] [place], [address], 02/13/2025 03:38:27 02/10/20 25 02/10/2025 COMP. METAB OLIC PANEL (14) alkaline phosphatase 90 IU/L 44-121 normal Not Available [facility] ([facility] [address] [facility] [place], [address], 02/13/2025 03:38:27 02/10/20 25 02/10/2025 COMP. METAB OLIC PANEL (14) AST (SGOT) 17 IU/L 0-40 normal Not Available [facility] ([facility]) [address] [facility], [place], [address], 02/13/2025 03:38:27 02/10/20 25 02/10/2025 COMP. METAB OLIC PANEL (14) ALT (SGPT) 15 IU/L 0-32 normal Not Available [facility] ([facility]) [address] [facility] [place], [address], 02/13/2025 03:38:27 02/10/20 25 02/10/2025 LIPID PANEL cholesterol, total 149 mg/dL 100-19 9 normal Not Available [facility] ([facility]) [address] [facility], [place], [address], 02/13/2025 03:38:27 02/10/20 25 02/10/2025 LIPID PANEL triglyceride s 82 mg/dL 0-149 normal Not Available [facility] ([facility]) [address] [place], [address], 02/13/2025 03:38:27 02/10/20 25 02/10/2025 LIPID PANEL HDL cholesterol 48 mg/dL >39 normal Not Available [facility] ([facility]) [address] [place], [address], 02/13/2025 03:38:27 02/10/20 25 02/10/2025 LIPID PANEL VLDL cholesterol teresa 16 mg/dL 5-40 Not Available [facility] ([facility] [address] [place], [address], 02/13/2025 03:38:27 02/10/20 25 02/10/2025 LIPID PANEL LDL chol calc ([facility]) 85 mg/dL 0-99 Not Available [facility] ([facility] [address] [place], [address], 02/13/2025 03:38:27 02/10/20 25 02/10/2025 LIPID PANEL LDL calc comment: COMPLAINT ADJUSTER Not Available [facility] ([facility]) [address] [place], [address], 02/13/2025 03:38:27 02/10/20 25 02/12/2025 VITAM IN E vitamin E(alpha tocopherol) 8.2 mg/L 7.0-25 .1 Not Available [facility] ([facility]) [address] [place], [address], 02/13/2025 03:38:28 02/10/20 25 02/12/2025 VITAM IN E vitamin E(gamma tocopherol) 1.4 mg/L 0.5-5. 5 Refer ence inter vals for alpha and gamma -toco phero l deter mined from [facility] y, 2004- 2005. Indiv idual s with alpha -toco phero l level s less than 5.0 mg/L are consi dered vitam in E defic ient. Not Available [facility] ([facility]) [address] [facility], [place], [address], 02/13/2025 03:38:28 02/10/20 25 02/10/2025 HEMOG LOBIN A1C hemoglobin A1C 5.6 % 4.8-5. 6 normal Predi abete s: 5.7 - 6.4 Diabe laura: >6.4 Glyce gildardo contr ol for adult s with diabe laura: <7.0 Not Available [facility] ([facility]) [address] [facility], [place], [address], 02/13/2025 03:38:29 02/10/20 25 02/10/2025 FOLAT E (FOLI C ACID) , SERUM folate (folic acid), serum >20.0 NG/mL >3.0 A serum folat e arie ntrat ion of less than 3.1 ng/mL is consi dered to repre sent clini teresa defic iency . Not Available [facility] ([facility]) [address] [facility], [place], [address], 02/13/2025 03:38:29 02/10/20 25 02/12/2025 VITAM IN A, SERUM vitamin A 41.7 ug/dL 20.1-6 2.0 Refer ence inter vals for vitam in A deter mined from [facility] inter nal studi es. Indiv idual s with vitam in A less than 20 ug/dL are consi dered vitam in A defic ient and those with serum arie ntrat ions less than 10 ug/dL are consi dered sever pastor defic ient. This test was devel oped and its perfo rmanc e daniel cteri stics deter mined by [facility]. It has not been clear ed or appro silvana by the Food and Drug Admin istra tion. Not Available [facility] ([facility]) [address] [facility], [place], [address], 02/13/2025 03:38:30 02/10/20 25 02/10/2025 VITAM IN D, 25-HY DROXY vitamin D, 25-hydroxy 44.3 NG/mL 30.0-1 00.0 Vitam in D defic iency has been defin ed by the Insti tute of Medic ine and an Endoc rine Socie ty pract ice guide line as a level of serum 25-OH vitam in D less than 20 ng/mL (1,2) . The Endoc rine Socie ty went on to furth er defin e vitam in D insuf ficie ncy as a level betwe en 21 and 29 ng/mL (2). 1. IOM (Inst itute of Medic ine). 2010. Dieta ry refer ence intak es for calci um and D. Nicko oviedo [place]: The [facility] Press . 2. Dolly estrada MF, Tono hernandez NC, Emily off-F errar i MERCER, et al. Evalu ation , treat ment, and preve ntion of vitam in D defic iency : an Endoc rine Socie ty clini teresa pract ice guide line. JCEM. 2010; 96(7) :1911 -30. Not Available [facility] ([facility]) [address] [facility], [place], [address], 02/13/2025 03:38:31 02/10/20 25 02/12/2025 VITAM IN B1 (THIA MINE) , BLOOD vit. B1, whole blood 164.9 nmol/ L 66.5-2 00.0 Not Available [facility] ([facility]) [address] [place], [address], 02/13/2025 03:38:31 02/10/20 25 02/12/2025 METHY LMALO TATE ACID, SERUM methylmaloni c acid, serum 72 nmol/ L 0-378 Not Available [facility] ([facility]) [address] [place], [address], 02/13/2025 03:38:32 02/10/20 25 02/10/2025 PREAL BUMIN prealbumin 24 mg/dL 12-34 Not Available [facility] ([facility]) [address], [place], [address], 02/13/2025 03:38:32 Result Notes None recorded. Problems Name Problem SNOMED Code Status Onset Date Resolution Date Notes Provider Name and Address Organization Details Recorded Time Gastroesophag eal reflux disease without esophagitis 348624381 Active 2024 José Manuel Wilde, TAMIKO, OIL CHANGE TECHNICIAN, COMPLAINT ADJUSTER-C [address] , [place], [address] , [place] - [facility] & [place] 5 15:04:04 Abnormal weight gain 095279738 Active 2024 José Manuel Wilde, TAMIKO, OIL CHANGE TECHNICIAN, COMPLAINT ADJUSTER-C [address], [place], [place], [address] [place] [address] , [place] - [facility] & [place] 5 15:48:39 Esophageal dysphagia 10263445 Active 2024 José Manuel Wilde, TAMIKO, OIL CHANGE TECHNICIAN, COMPLAINT ADJUSTER-C [address] , [place], [address] , [place] - [facility] & [place] 5 15:50:48 Hyperlipidemi a 92716612 Active 2021 Not Available [facility] 2 11:10:49 Hypothyroidis m 75628724 Active 2021 Not Available [facility] 2 11:10:50 Heartburn 60928664 Active 2021 Not Available [facility] 2 11:10:49 Disorder of function of stomach 000737599 Active 2021 Not Available [facility] 2 11:10:49 Psoriasis 4966008 Active 2021 Not Available [facility] 2 11:10:49 Psoriatic arthritis 558636312 Active 2021 Not Available [facility] 2 11:10:49 Obesity 444554313 Active 2022 José Manuel Wilde, DNP, OIL CHANGE TECHNICIAN, COMPLAINT ADJUSTER-C [address] [facility], [place], [address] , [facility] - [facility] & [place] 3 10:05:05 Problem Notes None recorded. Procedures Surgical History Date Name Laterality Status Provider Name and Address Organization Details Recorded Time 04/[address], LD [address] , [place] [address] , [facility] - [facility] & [place] 2 15:18:24 04/08 Date of Last Pap Smear completed NANCIE CONRAD RD, LD [address] , [place] [address] , [facility] & [place] 2 15:18:24 10/14 Morning Caregiver Surgery completed NANCI[address]RAD RD, LD [address] , [place] [address] , [facility] - [facility] & [place] 2 15:18:35 section completed Celeste Leach [facility] & [place] 2 16:39:58 extraction of wisdom tooth completed Celeste Leach [facility] [place] & [place] 2 16:40:09 esophagogastroduodenoscopy completed Celeste Leach [facility] [place] & [place] 5 14:47:35 Colonoscopy completed Celeste Leach [facility] & [place] 5 14:47:47 EGD completed Ruiz dodd [facility] [place] & [place] 2 10:58:38 laparoscopic sleeve gastrectomy completed Celeste Hany [facility] [place] & [place] 2 08:31:34 Imaging Results None recorded. Procedure Notes None recorded. Medical Equipment None Reported. Allergies Allergen ID Allergen Name Allergen Category Reaction Reaction Severity Criticality Documentation Date Start Date Code Code System Note Provider Name and Address Organization Details Recorded Time 49865 Product containin g penicilli n (product) medicatio n Not available Not available Not available 07/09/2022 70371 8001 SNOMED Celeste Leach [facility] [place], [place] - [facility] - [place] & [place] 2 16:36:10 Medications Name Sig Start Date [...] Available Vitals Date Recorded Body height Body mass index (BMI) Body weight Body temperature Heart rate Systolic blood pressure Diastolic blood pressure Provider Name and Address Organization Details Last Updated DateTime 3 167.64 cm 39.5 kg/m2 373933. 33 g 97.3 [degF] 82 /min 134 mm[Hg] 71 mm[Hg] Celeste Leach [place] - [facility] & [place] 3 15:06:27 Date Recorded Body height Body temperature Heart rate Body mass index (BMI) Body weight Systolic blood pressure Diastolic blood pressure Provider Name and Address Organization Details Last Updated DateTime 3 167.64 cm 97.3 [degF] 76 /min 36.7 kg/m2 123468. 83 g 104 mm[Hg] 66 mm[Hg] Ruiz abraham [place] - [facility] & [place] 3 15:14:58 Date Recorded Body height Body temperature Body mass index (BMI) Body weight Heart rate Systolic blood pressure Diastolic blood pressure Provider Name and Address Organization Details Last Updated DateTime 5 167.64 cm 98 [degF] 36.1 kg/m2 237373. 89 g 80 /min 110 mm[Hg] 70 mm[Hg] Celeste Leach [facility] & [place] 5 14:52:49 Date Recorded Body height Body temperature Heart rate Body mass index (BMI) Body weight Systolic blood pressure Diastolic blood pressure Provider Name and Address Organization Details Last Updated DateTime 3 167.64 cm 97.3 [degF] 69 /min 33.8 kg/m2 74714.3 2 g 114 mm[Hg] 71 mm[Hg] Celeste Leach [facility] & [place] 3 09:55:28 Date Recorded Body height Body mass index (BMI) Body weight Body temperature Heart rate Systolic blood pressure Diastolic blood pressure Provider Name and Address Organization Details Last Updated DateTime 3 167.64 cm 33.2 kg/m2 37948.9 5 g 98.19 [degF] 69 /min 135 mm[Hg] 72 mm[Hg] Shelly Meza [facility] & [place] 3 08:28:36 Social History Question Answer Notes LastModified by Organizat ion Details LastModified Time Tobacco Smoking Status Never Smoker NANCIE CONRAD RD, LD [address] , [place], [address], [facility] & [place] 08/02/2022 15:18:19 Do You Have An Advance Directive? No [email or web address] Information not available 08/02/2022 Are You Blind Or Do You Have Difficulty Seeing? No [email or web address] Information not available 08/02/2022 What Was The Date Of Your Most Recent Tobacco Screening? 07/10/2022 [email or web address] Information not available 08/02/2022 Are You Passively Exposed To Smoke? No [email or web address] Information not available 08/02/2022 Sex: Female Functional Status Question Answer Note LastModified by Organizat ion Details LastModified Time Do you use any illicit or recreational drugs? No [email or web address] Information not available 07/09/2022 Do you or have you ever used any other forms of tobacco or nicotine? No [email or web address] Information not available 04/03/2023 What is your level of alcohol consumption? Occasional Information not available 07/09/2022 What is your exercise level? Occasional Information not available 08/02/2022 Mental Status None recorded. Family History Relationship Description Onset Age of this Age Resolved Age Notes LastModified by Organization Details LastModified Time Father Obese [email or web address] Not available 02/09/2025 14:43:27 Father Diabetes mellitus [email or web address] Not available 02/09 14:43:27 Father Hypertensive disorder [email or web address] Not available 16:38:29 Father Hypercholest erolemia [email or web address] Not available 16:38:39 Father Sleep disorder [email or web address] Not available 16:38:48 Paternal Grandmother Hypertensive disorder [email or web address] Not available 16:38:29 Paternal Grandmother Chronic obstructive pulmonary disease [email or web address] Not available 16:39:01 Medical History Condition Response Autoimmune disease Y Other Y Obesity Y Ear or Hearing Problems N Eczema [...] Recorded Time influenza, unspecified formulation 08/27/2023 completed MINESH Font[facility]ot - [facility] & [place] 09/30/2023 08:21:51 Past Encounters Encounter ID Performer Location Encounter Start Date Encounter Closed Date Diagnosis/Indication Diagnosis SNOMED-CT Code Diagnosis ICD10 Code Diagnosis Note [id number] José Manuel Wilde, DNP, OIL CHANGE TECHNICIAN, COMPLAINT ADJUSTER-C [facility] [address] [facility] [address] [place] [address] 07/12/2022 08:40:10 07/12/2022 12:47:15 Obesity 991996120 E66.9 The patient will be scheduled for the following. Initial intake lab work, cardiac clearance, and EGD. All risks complicati ons and alternativ es of the upper endoscopy were discussed with the patient and agreed upon. These include but are not limited to, over sedation, bleeding, perforatio n. Patient will be educated by the surgical weight loss team regarding if any medical managed weight loss will be required and they will follow this according to their recommenda tions. 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 Morbid obesity 167402958 E66.01 [id number] Daniel Aguilera DO [facility] [address] [facility] [address] [place] [address] 09/19/2022 07:57:33 09/19/2022 15:19:14 Hyperlipidemia 59503039 E78.5 Hypothyroidism 18170272 E03.9 Morbid obesity 777756547 E66.01 Pre-surger y evaluation 973797830 Z01.818 Postoperative pain 28031 9007 G89.18 Disorder o f function of stomach 557999579 K31.89 [id number] José Manuel Wilde DNP, OIL CHANGE TECHNICIAN, COMPLAINT ADJUSTER-C [facility] [address] [facility] [address] [facility] [place] [address] 10/09/2022 08:14:43 10/09/2022 10:04:50 Hyperlipidemia 17235913 E78.5 Hypothyroidism 42646157 E03.9 Morbid obesity 416454243 E66.01 Psoriatic arthritis 1563 96184 L40.50 [id number] José Manuel Wilde, TAMIKO, OIL CHANGE TECHNICIAN, COMPLAINT ADJUSTER-C [facility] [address] [facility] [place] [place] [address] 11/01/2022 14:58:47 11/01/2022 15:47:42 History of bariatric surgical procedure 738979298 Z98.84 Advised qid intake 50% protein 4865-2535 calories/d y less than 100 carbs/dyPa tient [...] We will contact patient with any deficienci es.She will see costume designer today. History of gastrectomy 309157027 Z90.3 Patient is status post bariatric surgery and at increased risk for vitamin deficienci es and malnutriti on. Bariatric vitamin panel ordered today. Patient will be contacted to correct any vitamin deficienci es. Intentiona l weight loss 288651142 R63.8 Hyperlipidemia 21085692 E78.5 Hypothyroidism 93988492 E03.9 Morbid obesity 691170920 E66.01 Psoriatic arthritis 1563 55923 L40.50 [id number] José Manuel Wilde, TAMIKO, OIL CHANGE TECHNICIAN, COMPLAINT ADJUSTER-C [facility] [address] [facility] [address] [place] [address] 12/31/2022 15:08:21 12/31/2022 15:36:26 History of bariatric surgical procedure 511415637 Z98.84 Advised qid intake 50% protein 2019-0010 calories/d y less than 100 carbs/dyPa tient [...] will contact patient with any deficienci es. History of gastrectomy 015959998 Z90.3 Patient is status post bariatric surgery and at increased risk for vitamin deficienci es and malnutriti on. Bariatric vitamin panel ordered today. Patient will be contacted to correct any vitamin deficienci es. Hyperlipidemia 57882327 E78.5 Hypothyroidism 84281122 E03.9 Intentiona l weight loss 979115719 R63.8 Morbid obesity 132740549 E66.01 [id number] José Manuel Wilde, TAMIKO, OIL CHANGE TECHNICIAN, COMPLAINT ADJUSTER-C [facility] [address] [place] [address] 04/03/2023 09:47:36 04/03/2023 10:28:45 History of bariatric surgical procedure 475886291 Z98.84 Advised qid intake 50% protein 4442-1543 calories/d y less than 100 carbs/dyPa tient [...] any deficienci es. Intentiona l weight loss 743963728 R63.8 History of gastrectomy 606987818 Z90.3 Advised qid intake 50% protein 7950-0034 calories/d y less than 100 carbs/dyLo ng discussion today of InBody results including PBF(percen t body fat) SMM (skeletal muscle mass) Visceral fat level level BMR Segmental Fat Analysis and Segmental Lean Analysis.E ncouraged pt to take minimal calories as per BMR and to anticipate changes in SMM and PBF values not just total weight.Fol low-up with Repeat NASRA in 3mth suggestedw ill see costume designer today.Isabelle ent is status post bariatric surgery and at increased risk for vitamin deficienci es and malnutriti on. Bariatric vitamin panel ordered today. Patient will be contacted to correct any vitamin deficienci es. Hyperlipidemia 24442236 E78.5 Hypothyroidism 72158972 E03.9 Obesity 632893537 E66.9 [id number] José Manuel Wilde DNP, CARLEE, COMPLAINT ADJUSTER-C [facility] [address] [place] [address] 09/30/2023 07:55:05 09/30/2023 08:51:04 History of bariatric surgical procedure 533005544 Z98.84 Advised qid intake 50% protein 2814-4526 calories/d y less than 100 carbs/dyPa tient [...] any deficienci es. Intentiona l weight loss 573328186 R63.8 History of gastrectomy 849900638 Z90.3 Advised qid intake 50% protein 8301-1139 calories/d y less than 100 carbs/dyLo ng discussion today of InBody results including PBF(percen t body fat) SMM (skeletal muscle mass) Visceral fat level level BMR Segmental Fat Analysis and Segmental Lean Analysis.E ncouraged pt to take minimal calories as per BMR and to anticipate changes in SMM and PBF values not just total weight.Fol low-up with Repeat NASRA in 3mth suggested. Patient will see dietitian today Patient is status post bariatric surgery and at increased risk for vitamin deficienci es and malnutriti on. Bariatric vitamin panel ordered today. Patient will be contacted to correct any vitamin deficienci es. Heartburn 61251051 R12 GERD-patie nt was reassured. We discussed [...] avoid foods that may aggravate the problem. Psoriasis 3821299 L40.9 Hyperlipidemia 33930024 E78.5 Hypothyroidism 54149440 E03.9 Obesity 128661257 E66.9 [id number] José Manuel Wilde, DNP, OIL CHANGE TECHNICIAN, COMPLAINT ADJUSTER-C [facility] [address] [facility] [address] [facility] [place] [address] 02/09/2025 14:40:27 02/09/2025 15:14:53 History of bariatric surgical procedure 051820882 Z98.84 Advised qid intake 50% protein 6292-4988 calories/d y less than 100 carbs/dyPa tient [...] any deficienci es. Intentiona l weight loss 962754158 R63.8 History of gastrectomy 357860961 Z90.3 Advised qid intake 50% protein 3693-6383 calories/d y less than 100 carbs/dy Long [...] to correct any vitamin deficienci es. At [facility] risk of nutritional deficit 237289927 Z91.89 Hyperlipidemia 56696204 E78.5 Hypothyroidism 05324423 E03.9 Heartburn 80321496 R12 GERD-patie nt was reassured. We discussed [...] problem. Gastroesop hageal reflux disease without esophagitis 992404532 K21.9 GERD-patie nt was reassured. We discussed [...] foods that may aggravate the problem. Obesity 574688548 E66.9 Psoriatic arthritis 1563 50598 L40.50 Abnormal weight gain 161 058713 R63.5 Esophageal dysphagia 408 61352 R13.19 I do have a copy of her report from upper GI. I will have Dr. Aguilera and Dr. Em review this as well. Health Concerns Section Related Observation LastModified by Organization Detai ls LastModified Time None Recorded Concern Status LastModified by Organization Details LastModified Time None Recorded Advance Directives Directive N: Payers Insurance Date Sequence Insurance Name Policy Number Policy Arguello Covered Member ID Arguello Member ID Guarantor Name 02/06/2025 1 [place] [id number] Tabatha Davila [id number] Tabatha Davila Notes Date Note Type Note Provider Name and Address Organization Details Recorded Time 11/01/2022 text/html Patient presents the office today for routine 1 month follow-up status post bariatric gastric sleeve surgery ( 2021 ). Patient doing well. Reports q.i.d. small meal intake. Reports >70g/dy protein intake and good hydration.Patient is drinking 64 ounces of water a day.Daily Calories 1000Taking routine vitamins as advised. just switched gummie to vitaminsHeartburn/ gastroesophageal reflux: deniesPt Denies : abdominal pain, prandial issues Nausea, Vomiting, bowel or bladder issuesTotal Weight loss Since last office visit has been 10.2 lbsPt is happy with their quality of life after Weight loss Surgery. just seen pcp yesterday for labs for her thyroid José Manuel Wilde, DNP, OIL CHANGE TECHNICIAN, COMPLAINT ADJUSTER-C [address], [place], [address], [facility] & [place] 11/01/2022 15:24:41 12/31/2022 text/html Patient presents the office today for routine 3 month follow-up status post bariatric gastric sleeve surgery ( 2021). Patient doing well. Reports q.i.d. small meal intake. Reports 80g/dy protein intake and good hydration.Patient is drinking 64 ounces of water a day.Daily Calories 1100Taking routine vitamins as advised.Heartburn/ gastroesophageal reflux: deniesPt Denies : abdominal pain, prandial issues Nausea, Vomiting, bowel or bladder issues. Total Weight loss Since last office visit has been 44.4 lbsPt is happy with their quality of life after Weight loss Surgery. Today's InBody reveals a skeletal muscle mass = 63.5 lb,body fat mass = 112.7 lb,BMI = 36.7Percent body fat = 49.6Basal Metabolic Rate = 1492 kilo calories José Manuel Wilde DNP, OIL CHANGE TECHNICIAN, COMPLAINT ADJUSTER-C [address], [place], [address], [facility] & [place] 12/31/2022 15:35:47 04/03/2023 text/html Patient presents the office today for routine 6 month follow-up status post bariatric gastric sleeve surgery ( 2021 ). Patient doing well. Reports q.i.d. small meal intake. Reports 80g/dy protein intake and good hydration.Patient is drinking 64 ounces of water a day.Daily Calories 900-1000Taking routine vitamins as advised.Heartburn/ gastroesophageal reflux: deniesPt Denies : abdominal pain, prandial issues Nausea, Vomiting, bowel or bladder issuesTotal Weight loss Since last office visit has been 17.4 lbsPt is happy with their quality of life after Weight loss Surgery. Today's InBody reveals a skeletal muscle mass = 63.3 lb,body fat mass = 96.2 lb,BMI = 33.9Percent body fat = 45.9Basal Metabolic Rate = 1482 kilo calories José Manuel Wilde DNP, OIL CHANGE TECHNICIAN, COMPLAINT ADJUSTER-C [address], [place], [address], [facility] 04/03/2023 10:26:31 09/30/2023 text/html Patient presents the office today for routine 12 month follow-up status post bariatric gastric sleeve surgery ( 2021 ). Patient doing well. Reports q.i.d. small meal intake. Reports >70g/dy protein intake and good hydration.Patient is drinking 48 ounces of water a day.Daily Calories 1000Taking routine vitamins via patch as advised.Heartburn/ gastroesophageal reflux: occasionalPt Denies : abdominal pain, prandial issues Nausea, Vomiting, bowel or bladder issuesTotal Weight loss Since last office visit has been 4 lbsPt is happy with their quality of life after Weight loss Surgery. Today's InBody reveals a skeletal muscle mass = 63.3 lb,body fat mass = 92.6 lb,BMI = 33.2Percent body fat = 45.0Basal Metabolic Rate = 1478 kilo calories José Manuel Wilde, DNP, OIL CHANGE TECHNICIAN, COMPLAINT ADJUSTER-C [address] [facility], [place], [address], [facility] 09/30/2023 08:52:58 02/09/2025 text/html Patient presents the office today to re-est/ follow-up status post bariatric gastric sleeve gastrectomy surgery ( 2021 ). Patient doing well. Reports q.i.d. small meal intake. Reports >70g/dy protein intake and good hydration.Patient is drinking 64 ounces of water a day.Daily Calories 1500Taking routine vitamins as advised.Heartburn/ gastroesophageal reflux: yesPt Denies : abdominal pain, prandial [...] 1459 kilo calories José Manuel Wilde, DNP, OIL CHANGE TECHNICIAN, COMPLAINT ADJUSTER-C [address] [facility], [place], [address], [facility] [place] & [place] 02/09/2025 15:53:19 OBGyn Episode No OBEpisode recorded.
--- OUTSIDE RECORDS SUMMARY | 2025-03-22 09:16 | XMS_ITS | Data Portability ---
Author Organization [facility] CANDICE Reyes [place] [employer]OS[employer] Address [address] [address] [place] [address] Care Team Providers Care Shipsmith Name Role Phone YANELY ARENAS Behavioral Health Therapist SADAF MCGRATH Beam Doffer BARI CHU Primary Care Provider Assessment No assessment recorded. Plan of Treatment Reminders Order Date Submit Date Provider Last Modified By Organization Details Last Modified Time Details Appointments None record ed. Lab None record ed. Referral None record ed. Procedures None record ed. Surgeries None record ed. Imaging None record ed. Medication Orders None record ed. Patient TargetsNo targets recorded. Patient Instructions Encounter Date Encounter Id Patient Instructions Last Modified By Organization Details Last Modified Time 11/02/2019 [id number] osteoarthritis: care instructions [email or web address] Not available 11/02/2019 10:15:31 Reason for Referral None Reported. Medical Equipment None Reported. Allergies Allergen ID Allergen Name Allergen Category Reaction Reaction Severity Criticality Documentation Date Start Date Code Code System Note Provider Name and Address Organization Details Recorded Time 092937 Product containin g penicilli n (product) medicatio n Not available Not available Not available 09/07/20162011 35679 8001 SNOMED Comme nt: Creat ed By: Adam tolbert Date: 2011 10:12 :14 AM; Not Available [facility] 6 04:08:25 Medications Name Sig Start Date Stop Date Status Note LastModified by Organization Details LastModified Time fluoxetine 40 mg capsule active Not Available Not Available Not Available levothyrox ine 175 mcg tablet active Not Available Not Available N ot Available azithromyc in 250 mg tablet active Not Available Not Available Not Available BuSpar 10 mg tablet Take 1 tablet twice a day by oral route. active Not Available Not Available No t Available [place] Thyroid 120 mg tablet Take 1 tablet every day by oral route. active Not Available Not Available No t Available doxycyclin e monohydrat e 100 mg capsule active Not Available Not Available Not Available methylpred nisolone 4 mg tablets in a dose pack active Not Available Not Available Not Available clobetasol 0.05 % scalp solution Two times a day 2011 active Instructi ons: Apply to the affected area one daily for scalp.;Fr equency: bid;Medic ation Descripti on: clobetaso l topical; Dosage:1; Route:top ical; refills:0 ; Quantity: 60 solution Not Available Not Available Not Available fluticason e propionate 50 mcg/actuat ion nasal spray,susp ension active Not Available Not Available Not Available diazepam 5 mg tablet active Not Available Not Available No t Available nitrofuran toin monohydrat e/macrocry stals 100 mg capsule active Not Available Not Available N ot Available [facility]-Sm[facility] the/FS Scalp Oil 0.01 % Every night at bedtime 2012 active Frequency : qhs;Alt Frequency : as direct.;M edication Descripti on: fluocinol one topical; Dosage:1; Route:top ical; refills:6 ; Quantity: 4 oil Not Available Not Available Not Available Dovonex Daily active Duration: 10 days;Freq uency: daily;Med ication Descripti on: calcipotr iene topical; Dosage:1; Route:top ical; refills:0 ; Quantity: 1 Not Available Not Available Not Available clobetasol Two times a day 2011 active Duration: 14 days;Inst ructions: Apply to the affected area twice daily.;Fr equency: bid;Medic ation Descripti on: clobetaso l topical; Dosage:1; Route:top ical; refills:4 ; Quantity: 60 ointment Not Available Not Available Not Available Synthroid Daily active Frequency : daily;Med ication Descripti on: levothyro xine; Dosage:1; refills:0 ; Quantity: 30 Not Available Not Available Not Available Ortho Evra As Directed active Frequency : as direct.;M edication Descripti on: ethinyl estradiol -norelges tromin; Dosage:1; Route:tra nsdermal; refills:0 ; Quantity: 1 film, extended release Not Available Not Available Not Available Humira Pen 40 mg/0.8 mL subcutaneo us kit active Not Available Not Available Not Available Taclonex Scalp 0.005 %-0.064 % topical suspension Daily 2012 active Instructi ons: Apply to the affected areas once daily as needed;Fr equency: daily;Med ication Descripti on: betametha sone-calc ipotriene topical; Dosage:1; Route:top ical; refills:3 ; Quantity: 1 suspensio n Not Available Not Available Not Available Flucelvax Quad (PF) 60 mcg (15 mcg x 4)/0.5 mL IM syringe active Not Available Not Available N ot Available Vitals Date Recorded Respiratory rate Body weight Heart rate Body mass index (BMI) Body height Systolic blood pressure Diastolic blood pressure Provider Name and Address Organization Details Last Updated DateTime 0 18 /min 723331. 65 g 70 /min 41.3 kg/m2 167.64 cm 128 mm[Hg] 85 mm[Hg] Shital Colton [facility] 0 10:02:22 Social History Question Answer Notes LastModified by [employer] Details LastModified Time Tobacco Smoking Status Never Smoker Shital Segura [facility] 11/02/2019 10:02:44 How Much Tobacco Do You Chew? None [email or web address] Information not available 11/02/2019 How Much Tobacco Do You Smoke? No Information not available 11/02/2019 Sex: Unknown Functional Status Question Answer Note LastModified by [employer] Details LastModified Time Do you or have you ever used smokeless tobacco? Never used smokeless tobacco Information not available 11/02/2019 Do you or have you ever used e-cigarettes or vape? Never used electronic cigarettes Information not available 11/02/2019 Mental Status None recorded. Family History Nothing Reported. Medical History Condition Response Emphysema N COPD N Arthritis Y Acid Reflux (GERD) N Rheumatoid Arthritis N Bleeding Disorder N Asthma N Diabetes N Heart Disease N Hypertension N Gynecological HistoryNo gynecological history recorded. Obstetrics History GPAL:G 0 P 0 0 0 0 Past Encounters Encounter ID Performer Location Encounter Start Date Encounter Closed Date Diagnosis/Indication Diagnosis SNOMED-CT Code Diagnosis ICD10 Code Diagnosis Note [id number] YANELY ARNEAS MD [facility] [address] [place] [address] 11/02/2019 09:44:49 11/02/2019 10:18:08 Generalized osteoarthritis 425481074 M15.9 A very pleasant 44-year-ol d female seen today for joint pains in the settings of chronic psoriasis. She is currently followed by dermatolog y and is on Humira 40 mg every 2 weeks for the past 3 years. Her clinical examinatio n is without any evidence of inflammato ry arthritis. In particular no features of psoriatic arthritis noted. She does have some mechanical pains secondary to osteoarthr itis along with some mild bilateral trochanter ic pain syndromes secondary to trochanter ic bursitis. No evidence of dactylitis or enthesitis noted. No joint effusion or synovitis noted. She is educated about osteoarthr itis and reassured about the absence of psoriatic arthritis. She can return to my office as needed basis. She suggested to maintain her follow-ups with dermatolog ist as planned. Health Concerns Section Related Observation LastModified by Organization Detai ls LastModified Time None Recorded Concern Status LastModified by Organization Details LastModified Time None Recorded Advance Directives Directive None Recorded Payers Insurance Date Sequence Insurance Name Policy Number Policy Agruello Covered Member ID Arguello Member ID Guarantor Name 11/02/2019 1 [id number] [id number] Tabatha Davila [id number] Tabatha alan Notes Date Note Type Note Provider Name and Address Organization Details Recorded Time 11/02/2019 text/html she is here for evaluation as a new patient. Has psoriasis since age 20 years , and is followed by dermatology Dr Mcgrath and Dr Anne. She is on Humira 40 mg q 2 weeks for the past 3 years. She has used Otezla, but denied by insurance. she is concerned about joint pains, and possible psoriatic arthritis. she has pains in the hands, hips and feet. she has chronic anemia and hypothyroid disease, and is followed by her PCP. YANELY ARENAS MD [address] [place] [address], [phone], [facility] 11/02/2019 11:56:31 OBGyn Episode No OBEpisode recorded.
[2025-03-22 10:01] LABS: Basophils % 0.3 % (0.1-2.0); Eosinophils # 0.2 Kmm3 (0.0-0.4); Eosinophils % 2.4 % (0.1-12.0); Hematocrit 41.9 % (37.0-47.0); Hemoglobin 13.9 g/dL (12.2-16.2); Immature Granulocytes # 0.03 10^3uL; Immature Granulocytes % 0.5 %; Lymphocytes # 1.8 K/mm3 (0.7-4.5); Lymphocytes % 28.7 % (10-50); Mean Corpuscular HGB Conc 33.2 g/dL (31.8-35.4); Mean Corpuscular Volume 93.3 fl (81-99); Mean Platelet Volume 9.9 fl (7.4-10.4); Monocytes # 0.5 K/mm3 (0.1-1.0); Neutrophils # 3.8 K/mm3 (1.8-7.8); Neutrophils % 60.1 % (37.0-80.0); Nucleated Red Blood Cells # 0 10^3/uL; Nucleated Red Blood Cells % 0 %; Platelet Count 273 K/mm3 (142-424); Red Blood Count 4.49 M/mm3 (4.20-5.40); Red Cell Distribution Width 12.3 % (11.5-17.5); Red Cell Distribution Width-SD 42.3 fL; White Blood Count 6.3 K/mm3 (4.8-10.8)
[2025-03-22 11:01] LABS: Ferritin 85.6 ng/ml (6.24-137)
[2025-03-22 11:18] LABS: Alanine Aminotransferase 16 U/L (12-78); Albumin Level 3.9 g/dl (3.5-5.0); Albumin/Globulin Ratio 1.4 (1.1-1.8); Alkaline Phosphatase 65 U/L (38-126); Anion Gap 8.2 mEq/L (5-15); Aspartate Amino Transferase 22 U/L (14-36); Bilirubin,Total 0.8 mg/dl (0.2-1.3); Blood Urea Nitrogen 17 mg/dl (7-17); Calcium 9.1 mg/dl (8.4-10.2); Carbon Dioxide 28 mmol/L (22.0-30.0); Chloride 107 mmol/L (98-107); Estimated Glomerular Filt Rate 89 ml/min (>60); GFR (African American) 108 ML/MIN (>60); Globulin 2.7 g/dL (1.3-3.2); Glucose 107 mg/dl (74-100); Potassium 4.2 mmoL/L (3.5-5.1); Sodium 139 mmol/L (136-145); Total Protein,Serum 6.6 g/dl (6.3-8.2)
[2025-03-22 16:20] LABS: Iron 110 ug/dL (37-170); Total Iron Binding Capacity 289 ug/dL (265-497)
[2025-03-24 17:51] LABS: QuantiFERON-TB Gold Plus Negative (Negative)
== END 2025-03-22 23:59 | disposition home or self-care (01) ==
PROVIDERS: Dermatology; PCP Family Medicine; Visit Provider Nurse Practitioner
DX: L40.8 Other psoriasis (principal); E61.1 Iron deficiency
CPT/HCPCS: 36415; 80053; 82728; 83540; 83550; 85025; 86480